=== PATIENT | male | born 1980 | race Caucasian/White ===

== ENCOUNTER 2016-10-20 07:43 | Inpatient (IN) | payer MEDICAID, OTHER ==
[~2016-10-20] VITALS: Ht 175.3 cm; Wt 97.5 kg
[~2016-10-20 07:43] MED LIST: [UNRECOGNIZED DRUG - CODE] PO; prednisone
[2016-10-20] MEDS ORDERED: DILTIAZEM HCL 5MG/ML 5ML VIAL IV ONE ×3 (08:00→08:15)
[2016-10-20] MEDS ORDERED: MORPHINE SULFATE 4 MG/ML CPJ (NOT FOR IM USE) IV STA (08:01)
[2016-10-20] MEDS ORDERED: ASPIRIN 81MG TABLET PO STA (08:01)
[2016-10-20] MEDS ORDERED: NITROGLYCERIN OINT 1GM/INCH UDPKT TD STA (08:01)
[2016-10-20] MEDS ORDERED: ONDANSETRON HCL 4MG/2ML VIAL IV STA (08:01)
[2016-10-20] MEDS ORDERED: ENOXAPARIN 100MG/ML SYR SUBCUT ONE (08:15)
[2016-10-20 08:31] LABS: BASOPHILS % 0.6 % (0.0-2.0); EOSINOPHILS % 1.7 % (0.0-5.0); HEMATOCRIT. 46.1 % (42.0-52.0); HEMOGLOBIN. 15.4 g/dL (14.0-18.0); LYMPHOCYTES % 25.2 % (20.0-50.0); MEAN CORPUSCULAR HEMOGLOBIN 28.3 pg (28.0-32.0); MEAN CORPUSCULAR VOLUME 84.5 fL (80.0-94.0); MEAN PLATELET VOLUME 8.6 fl (7.4-10.4); MONOCYTES % 4.3 % (2.0-8.0); NEUTROPHILS % 68.2 % (40.0-76.0); PLATELET 296 x1000/uL (130-400); RED BLOOD CELL COUNT 5.45 mill/uL (4.7-6.1); RED CELL DISTRIBUTION WIDTH 14.1 % (11.6-14.6)
[2016-10-20 08:35] LABS: PARTIAL THROMBOPLASTIN TIME 28.9 sec (23.4-31.0); PROTHROMBIN TIME 10.7 sec (9.4-11.6)
[2016-10-20 08:42] LABS: CARBON DIOXIDE 27 mEq/L (21-32); CHLORIDE 106 mEq/L (98-107); ETHANOL BLOOD < 10 mg/dL; TROPONIN I < 0.02 ng/mL (0.00-0.04)
[2016-10-20] MEDS ORDERED: DILTIAZEM HCL 120MG CAPSULE CD 24HR PO ONE (08:45)
[2016-10-20 08:48] LABS: T4 FREE 1.18 ng/dL (0.76-1.46)
[2016-10-20 09:55] LABS: *AMPHETAMINES SCREEN URINE PRESUMTIVE POSITIVE (NEGATIVE); *BARBITURATES SCREEN URINE NEGATIVE (NEGATIVE); *BENZODIAZEPINES SCREEN URINE NEGATIVE (NEGATIVE); *COCAINE SCREEN URINE NEGATIVE (NEGATIVE); CANNABINOID URINE SCREEN NEGATIVE (NEGATIVE); METHADONE URINE SCREEN NEGATIVE (NEGATIVE); OPIATES URINE SCREEN NEGATIVE (NEGATIVE); PHENCYCLIDINE URINE SCREEN NEGATIVE (NEGATIVE)
[2016-10-20 11:52] VITALS: BP 119/80
[2016-10-20 12:00] VITALS: BP 119/80
[2016-10-20] MEDS: DILTIAZEM HCL 30MG TABLET PO SCH ×3 (15:17→21:11)
[2016-10-20 16:00] VITALS: BP 111/70
[2016-10-20] MEDS ORDERED: POTASSIUM CHLORIDE 20MEQ TABLET SR PO NR (18:00)
[2016-10-20 20:00] VITALS: BP 124/83
[2016-10-20] MEDS: CARVEDILOL 3.125 MG TABLET PO SCH (20:28)
[2016-10-21] VITALS: BP_SYST 116; BP_SYST 187; BP_DIAS 68; BP_DIAS 90
[2016-10-21 04:00] VITALS: BP 139/79
[2016-10-21] MEDS: DILTIAZEM HCL 30MG TABLET PO SCH ×3 (05:41→21:15)
[2016-10-21 08:00] VITALS: BP 119/84
[2016-10-21] MEDS: CARVEDILOL 3.125 MG TABLET PO SCH ×2 (09:39→21:15)
[2016-10-21 12:00] VITALS: BP 121/89
[2016-10-21 16:00] VITALS: BP 118/85
[2016-10-21 20:00] VITALS: BP 116/79
[2016-10-21] MEDS ORDERED: DILT240C92 PO (20:05)
[2016-10-22] VITALS: BP 122/80
[2016-10-22 04:00] VITALS: BP 126/88
[2016-10-22] MEDS: DILTIAZEM HCL 30MG TABLET PO SCH ×2 (05:29→14:55)
[2016-10-22 08:00] VITALS: BP 125/65
[2016-10-22] MEDS: CARVEDILOL 3.125 MG TABLET PO SCH (09:22)
[2016-10-22] MEDS ORDERED: IOHEXOL-350 100 ML BOTTLE ONE (11:48)
[2016-10-22] MEDS ORDERED: SODIUM CHLORIDE 0.9% 10ML VIAL ONE (11:48)
[2016-10-22 12:00] VITALS: BP 136/88
[2016-10-22 15:46] VITALS: BP 125/88
[2016-10-22 16:00] VITALS: BP 121/82
== END 2016-10-22 16:35 | disposition home or self-care (01) | DRG 201 ==
LOC: ER 08:21 → 7WST 08:31 → ENRESERV 09:04
PROVIDERS: ADMIT Family Medicine; ATTEND Family Medicine
DX: I48.91 Unspecified atrial fibrillation (principal); I27.2 Other secondary pulmonary hypertension; I50.9 Heart failure, unspecified; I47.1 Supraventricular tachycardia; E87.6 Hypokalemia; F17.210 Nicotine dependence, cigarettes, uncomplicated; R73.9 Hyperglycemia, unspecified; Z59.0 Homelessness; F12.90 Cannabis use, unspecified, uncomplicated; Z79.899 Other long term (current) drug therapy; E87.5 Hyperkalemia; F19.10 Other psychoactive substance abuse, uncomplicated
CPT/HCPCS: 36415; 71010; 71275; 80053; 80305; 82962; 83690; 83735; 83880; 84439; 84443; 84481; 84484; 85025; 85610; 85730; 93005; 93306; 96372; 96374; 96375; 96376; 99285; A4216; G0482; J1650; J2270; J2405; J3490; Q9967

== ENCOUNTER 2016-11-01 10:02 | Emergency (ER) | payer MEDICAID, OTHER ==
[~2016-11-01] VITALS: Ht 175.3 cm; Wt 10.0 kg
[~2016-11-01 10:02] MED LIST changes: +DILT240C92 PO; -prednisone
[2016-11-01 10:43] LABS: BASOPHILS % 0.4 % (0.0-2.0); EOSINOPHILS % 1.8 % (0.0-5.0); HEMATOCRIT. 46.2 % (42.0-52.0); HEMOGLOBIN. 15.4 g/dL (14.0-18.0); LYMPHOCYTES % 22.1 % (20.0-50.0); MEAN CORPUSCULAR HEMOGLOBIN 28.4 pg (28.0-32.0); MEAN CORPUSCULAR VOLUME 85.2 fL (80.0-94.0); MEAN PLATELET VOLUME 8.6 fl (7.4-10.4); MONOCYTES % 4.8 % (2.0-8.0); NEUTROPHILS % 70.9 % (40.0-76.0); PLATELET 286 x1000/uL (130-400); RED BLOOD CELL COUNT 5.42 mill/uL (4.7-6.1); RED CELL DISTRIBUTION WIDTH 14.5 % (11.6-14.6)
[2016-11-01 10:53] LABS: CHLORIDE 105 mEq/L (98-107)
[2016-11-01 10:55] LABS: CARBON DIOXIDE 30 mEq/L (21-32)
[2016-11-01 11:01] LABS: TROPONIN I < 0.02 ng/mL (0.00-0.04)
[2016-11-01] MEDS ORDERED: MAGNESIUM/ALUMINUM HYDROXIDE/SIMETHICONE 30ML UDC PO STA (11:17)
[2016-11-01] MEDS ORDERED: FAMOTIDINE 20MG/2ML VIAL IV STA (11:17)
[2016-11-01] MEDS ORDERED: KETOROLAC 30MG/ML VIAL IV STA (11:17)
[2016-11-01] MEDS ORDERED: DICYCLOMINE 10 MG/5 ML ORAL SYR PO STA (11:17)
[2016-11-01] MEDS ORDERED: VISCOUS LIDOCAINE 2% 15 ML UDC PO STA (11:17)
[2016-11-01 15:00] VITALS: BP 152/96
== END 2016-11-01 16:05 | disposition home or self-care (01) ==
LOC: ER 10:36
DX: R07.9 Chest pain, unspecified (principal); F15.10 Other stimulant abuse, uncomplicated
CPT/HCPCS: 36415; 71010; 80053; 83880; 84484; 85025; 85610; 93005; 96374; 96375; 99285; J1885; J3490

== ENCOUNTER 2016-12-04 02:35 | Emergency (ER) | payer MEDICAID ==
[~2016-12-04] VITALS: Ht 175.3 cm; Wt 91.0 kg
[2016-12-04] MEDS ORDERED: ONDANSETRON HCL 4MG/2ML VIAL IV STA (03:08)
[2016-12-04] MEDS ORDERED: SODIUM CHLORIDE 0.9% 1,000 ML IV ONE (03:08)
[2016-12-04] MEDS ORDERED: ADENOSINE 3 MG/ML 2ML VIAL IV ONE (03:15)
[2016-12-04 03:30] LABS: BASOPHILS % 0.5 % (0.0-2.0); EOSINOPHILS % 1.7 % (0.0-5.0); HEMATOCRIT. 46.9 % (42.0-52.0); HEMOGLOBIN. 15.9 g/dL (14.0-18.0); LYMPHOCYTES % 30.5 % (20.0-50.0); MEAN CORPUSCULAR VOLUME 85.6 fL (80.0-94.0); MEAN PLATELET VOLUME 8.8 fl (7.4-10.4); MONOCYTES % 4.5 % (2.0-8.0); NEUTROPHILS % 62.8 % (40.0-76.0); PLATELET 290 x1000/uL (130-400); RED BLOOD CELL COUNT 5.48 mill/uL (4.7-6.1); RED CELL DISTRIBUTION WIDTH 14.1 % (11.6-14.6)
[2016-12-04 03:42] LABS: CARBON DIOXIDE 26 mEq/L (21-32); CHLORIDE 106 mEq/L (98-107); TROPONIN I < 0.02 ng/mL (0.00-0.04)
[2016-12-04 05:57] VITALS: BP 129/68
== END 2016-12-04 06:03 | disposition home or self-care (01) ==
LOC: ER 02:35
DX: I47.1 Supraventricular tachycardia (principal); F17.210 Nicotine dependence, cigarettes, uncomplicated; F15.10 Other stimulant abuse, uncomplicated
CPT/HCPCS: 36415; 71010; 80053; 84484; 85025; 93005; 96361; 96374; 96375; 99285; J0153; J2405; J7030

== ENCOUNTER 2016-12-11 23:24 | Inpatient (IN) | payer OTHER, MEDICAID ==
[~2016-12-11] VITALS: Ht 175.3 cm; Wt 94.1 kg
[2016-12-12] MEDS ORDERED: SODIUM CHLORIDE 0.9% 1,000 ML IV ONE (00:03)
[2016-12-12] MEDS ORDERED: ADENOSINE 3 MG/ML 2ML VIAL IV ONE ×2 (00:15)
[2016-12-12 00:22] LABS: HEMATOCRIT. 49.5 % (42.0-52.0); HEMOGLOBIN. 16.6 g/dL (14.0-18.0); MEAN CORPUSCULAR VOLUME 86.5 fL (80.0-94.0); RED BLOOD CELL COUNT 5.73 mill/uL (4.7-6.1); RED CELL DISTRIBUTION WIDTH 14.2 % (11.6-14.6)
[2016-12-12] MEDS ORDERED: DILTIAZEM HCL 5MG/ML 5ML VIAL IV ONE ×2 (00:26→00:30)
[2016-12-12 00:29] LABS: PARTIAL THROMBOPLASTIN TIME 28.5 sec (23.4-31.0)
[2016-12-12 00:38] LABS: CARBON DIOXIDE 29 mEq/L (21-32); CHLORIDE 105 mEq/L (98-107); TROPONIN I < 0.02 ng/mL (0.00-0.04)
[2016-12-12 00:47] LABS: CREATINE KINASE 78 IU/L (39-308)
[2016-12-12 02:00] LABS: PLATELET 314 x1000/uL (130-400)
[2016-12-12 02:03] LABS: ATYPICAL LYMPHOCYTES 4; PLATELET ESTIMATE NORMAL
[2016-12-12 04:01] LABS: *AMPHETAMINES SCREEN URINE PRESUMTIVE POSITIVE (NEGATIVE); *BARBITURATES SCREEN URINE NEGATIVE (NEGATIVE); *BENZODIAZEPINES SCREEN URINE NEGATIVE (NEGATIVE); *COCAINE SCREEN URINE NEGATIVE (NEGATIVE); CANNABINOID URINE SCREEN NEGATIVE (NEGATIVE); METHADONE URINE SCREEN NEGATIVE (NEGATIVE); OPIATES URINE SCREEN NEGATIVE (NEGATIVE); PHENCYCLIDINE URINE SCREEN NEGATIVE (NEGATIVE)
[2016-12-12 04:30] VITALS: BP 104/71
[2016-12-12 04:58] VITALS: BP 104/71
[2016-12-12] MEDS ORDERED: HYDROCODONE/ACETAMINOPHEN 10/325MG TABLET PO PRN (06:15)
[2016-12-12 07:27] VITALS: BP 137/91
[2016-12-12 09:39] LABS: BASOPHILS % 0.4 % (0.0-2.0); EOSINOPHILS % 1.4 % (0.0-5.0); HEMATOCRIT. 42.9 % (42.0-52.0); HEMOGLOBIN. 14.4 g/dL (14.0-18.0); LYMPHOCYTES % 28.2 % (20.0-50.0); MEAN CORPUSCULAR HEMOGLOBIN 28.5 pg (28.0-32.0); MEAN CORPUSCULAR VOLUME 84.9 fL (80.0-94.0); MEAN PLATELET VOLUME 8.7 fl (7.4-10.4); MONOCYTES % 5.5 % (2.0-8.0); NEUTROPHILS % 64.5 % (40.0-76.0); PLATELET 245 x1000/uL (130-400); RED BLOOD CELL COUNT 5.05 mill/uL (4.7-6.1); RED CELL DISTRIBUTION WIDTH 14.3 % (11.6-14.6)
[2016-12-12] MEDS ORDERED: DILTIAZEM HCL 5MG/ML 5ML VIAL IV NR (10:30)
[2016-12-12 10:45] LABS: CARBON DIOXIDE 25 mEq/L (21-32); CHLORIDE 108 mEq/L (98-107); HDL CHOLESTEROL 40 mg/dL (40-59); LDL CHOLESTEROL 34 mg/dL (5-100)
[2016-12-12] MEDS: DILTIAZEM HCL 30MG TABLET PO SCH ×3 (11:54→22:35)
[2016-12-12 12:00] VITALS: BP 127/91
[2016-12-12] MEDS ORDERED: PNEUMOCOCCAL 23-VAL P-SAC VAC 0.5 ML IM ONE (12:00)
[2016-12-12] MEDS ORDERED: INFLUENZA VIRUS VACCINE 0.5ML SYR IM ONE (12:00)
[2016-12-12] MEDS ORDERED: DILTIAZEM HCL 5MG/ML 5ML VIAL IV PRN (12:45)
[2016-12-12 15:44] VITALS: BP 106/71
[2016-12-12 19:43] VITALS: BP 141/97
[2016-12-13 00:15] VITALS: BP 146/93
[2016-12-13 05:00] VITALS: BP 138/86
[2016-12-13] MEDS: DILTIAZEM HCL 30MG TABLET PO SCH ×2 (05:15→13:07)
[2016-12-13 07:25] VITALS: BP 126/89
[2016-12-13] MEDS ORDERED: DILT120C11 MT (14:35)
[2016-12-13 16:15] VITALS: BP 126/85
== END 2016-12-13 17:10 | disposition home or self-care (01) | DRG 201 ==
LOC: ER 23:24 → 6WST 12-12 02:00 → EDBEDREQ 12-12 02:02 → ENRESERV 12-12 03:47
PROVIDERS: ADMIT Internal Medicine; ATTEND Internal Medicine
DX: I47.1 Supraventricular tachycardia (principal); E44.1 Mild protein-calorie malnutrition; E83.51 Hypocalcemia; M41.9 Scoliosis, unspecified; F15.10 Other stimulant abuse, uncomplicated; Z91.19 Patient's noncompliance with other medical treatment and regimen; Z68.30 Body mass index [BMI] 30.0-30.9, adult
CPT/HCPCS: 36415; 71010; 80053; 80061; 80305; 82550; 83036; 83690; 84443; 84484; 85025; 85610; 85730; 90686; 90732; 92960; 93005; 93306; 96374; 96375; 99291; J0153; J3490; J7030

== ENCOUNTER 2017-02-18 02:54 | Emergency (ER) | payer MEDICAID ==
[~2017-02-18] VITALS: Ht 172.7 cm; Wt 91.0 kg
[~2017-02-18 02:54] MED LIST changes: +DILT120C11 MT; -DILT240C92 PO; -[UNRECOGNIZED DRUG - CODE] PO
[2017-02-18 03:02] VITALS: BP 124/92
== END 2017-02-18 07:48 | disposition left against medical advice (07) ==
LOC: ER 02:54
DX: R07.9 Chest pain, unspecified (principal); Z53.21 Procedure and treatment not carried out due to patient leaving prior to being seen by health care provider
CPT/HCPCS: 93005

== ENCOUNTER 2017-10-05 22:24 | Emergency (ER) | payer MEDICAID ==
[~2017-10-05] VITALS: Ht 175.3 cm; Wt 90.0 kg
[2017-10-05] MEDS ORDERED: ASPIRIN 81MG TABLET PO ONE (23:00)
[2017-10-05 23:25] LABS: BASOPHILS % 0.6 % (0.0-2.0); EOSINOPHILS % 1.2 % (0.0-5.0); HEMATOCRIT. 45.6 % (42.0-52.0); HEMOGLOBIN. 15.2 g/dL (14.0-18.0); LYMPHOCYTES % 23.5 % (20.0-50.0); MEAN CORPUSCULAR HEMOGLOBIN 28.6 pg (28.0-32.0); MEAN CORPUSCULAR VOLUME 85.9 fL (80.0-94.0); MEAN PLATELET VOLUME 8.5 fl (7.4-10.4); NEUTROPHILS % 68.7 % (40.0-76.0); PLATELET 282 x1000/uL (130-400); RED BLOOD CELL COUNT 5.31 mill/uL (4.7-6.1); RED CELL DISTRIBUTION WIDTH 14.7 % (11.6-14.6)
[2017-10-05 23:28] LABS: CHLORIDE 106 mEq/L (98-107)
[2017-10-05 23:32] LABS: ETHANOL BLOOD < 10 mg/dL; PARTIAL THROMBOPLASTIN TIME 29.2 sec (23.4-31.0); PROTHROMBIN TIME 10.3 sec (9.1-11.1)
[2017-10-06 05:56] VITALS: BP 130/88
== END 2017-10-06 08:46 | disposition home or self-care (01) ==
LOC: ER 22:24 → CANBEDREQ 10-06 07:22 → ER 10-06 08:23
DX: F15.188 Other stimulant abuse with other stimulant-induced disorder (principal); R07.89 Other chest pain; I48.91 Unspecified atrial fibrillation; I51.9 Heart disease, unspecified
CPT/HCPCS: 36415; 71045; 80053; 83690; 83880; 84484; 85025; 85610; 85730; 93005; 99285; G0482; Z7610

== ENCOUNTER 2018-02-19 22:21 | Emergency (ER) | payer MEDICAID ==
[~2018-02-19] VITALS: Ht 175.3 cm; Wt 93.0 kg
[2018-02-20] MEDS ORDERED: LORAZEPAM 2MG/ML CPJ IV ONE (03:00)
[2018-02-20 03:29] LABS: BASOPHILS % 0.5 % (0.0-2.0); EOSINOPHILS % 1.8 % (0.0-5.0); HEMATOCRIT. 46.3 % (42.0-52.0); MEAN CORPUSCULAR HEMOGLOBIN 27.8 pg (28.0-32.0); MEAN CORPUSCULAR VOLUME 85.6 fL (80.0-94.0); MEAN PLATELET VOLUME 8.8 fl (7.4-10.4); MONOCYTES % 5.8 % (2.0-8.0); NEUTROPHILS % 63.9 % (40.0-76.0); PLATELET 292 x1000/uL (130-400); RED BLOOD CELL COUNT 5.41 mill/uL (4.7-6.1); RED CELL DISTRIBUTION WIDTH 14.2 % (11.6-14.6)
[2018-02-20] MEDS ORDERED: CEFTRIAXONE 1 G PREMIX 50 ML IV ONE (03:30)
[2018-02-20] MEDS ORDERED: AZITHROMYCIN 500 MG in DEXT 5% WATER 250 ML IV ONE (03:30)
[2018-02-20 03:31] LABS: CLARITY URINE CLEAR (CLEAR); COLOR URINE DARK YELLOW (YELLOW); KETONES URINE NEGATIVE (NEGATIVE); LEUKOCYTE ESTERASE URINE 1+ (NEGATIVE); NITRITE URINE NEGATIVE (NEGATIVE); OCCULT BLOOD URINE NEGATIVE (NEGATIVE); PH URINE 6.5 (4.5-8.0); PROTEIN URINE NEGATIVE (NEGATIVE); SPECIFIC GRAVITY URINE 1.029 (1.005-1.030)
[2018-02-20 03:37] LABS: CHLORIDE 107 mEq/L (98-107)
[2018-02-20 05:59] VITALS: BP 121/81
== END 2018-02-20 06:01 | disposition home or self-care (01) ==
LOC: ER 22:21
DX: J18.1 Lobar pneumonia, unspecified organism (principal); R07.89 Other chest pain; N39.0 Urinary tract infection, site not specified; F15.10 Other stimulant abuse, uncomplicated; R91.8 Other nonspecific abnormal finding of lung field; I51.9 Heart disease, unspecified; M41.9 Scoliosis, unspecified; Z87.891 Personal history of nicotine dependence; Z79.899 Other long term (current) drug therapy
CPT/HCPCS: 36415; 71045; 80053; 81003; 83880; 84484; 85025; 87040; 87086; 93005; 96365; 96367; 96375; 99284; J0456; J0696; J2060; J7060

== ENCOUNTER 2018-03-21 03:35 | Inpatient (IN) | payer MEDICAID ==
[~2018-03-21] VITALS: Ht 175.3 cm; Wt 91.6 kg
[2018-03-21] MEDS ORDERED: DOCUSATE SODIUM 100MG CAPSULE PO PRN (07:30)
[2018-03-21] MEDS ORDERED: ONDANSETRON HCL 4MG/2ML INJ IV PRN (07:30)
[2018-03-21] MEDS ORDERED: CLONIDINE 0.1MG TABLET PO PRN (07:30)
[2018-03-21] MEDS ORDERED: MAGNESIUM/ALUMINUM HYDROXIDE/SIMETHICONE 30ML UDC PO PRN (07:30)
[2018-03-21] MEDS ORDERED: DILTIAZEM HCL 30MG TABLET PO PRN (07:30)
[2018-03-21 07:55] LABS: BASOPHILS % 0.4 % (0.0-2.0); EOSINOPHILS % 1.1 % (0.0-5.0); HEMATOCRIT. 45.3 % (42.0-52.0); MEAN CORPUSCULAR HEMOGLOBIN 28.4 pg (28.0-32.0); MONOCYTES % 6.4 % (2.0-8.0); NEUTROPHILS % 57.1 % (40.0-76.0); PLATELET 288 x1000/uL (130-400); RED BLOOD CELL COUNT 5.26 mill/uL (4.7-6.1); RED CELL DISTRIBUTION WIDTH 14.5 % (11.6-14.6)
[2018-03-21 08:20] LABS: CHLORIDE 106 mEq/L (98-107)
[2018-03-21 09:00] VITALS: BP 141/91
[2018-03-21] MEDS ORDERED: ACETAMINOPHEN 325MG TABLET PO PRN (09:27)
[2018-03-21] MEDS: METOPROLOL TARTRATE 25MG TABLET PO SCH ×2 (09:35→20:55)
[2018-03-21] MEDS: ASPIRIN 81MG EC TABLET PO SCH (09:35)
[2018-03-21] MEDS: ENOXAPARIN 40MG/0.4ML SYR SUBCUT SCH (09:36)
[2018-03-21 12:00] VITALS: BP 111/64
[2018-03-21 16:00] VITALS: BP 103/69
[2018-03-21 16:32] LABS: *AMPHETAMINES SCREEN URINE PRESUMTIVE POSITIVE (NEGATIVE); *BARBITURATES SCREEN URINE NEGATIVE (NEGATIVE); *BENZODIAZEPINES SCREEN URINE NEGATIVE (NEGATIVE); *COCAINE SCREEN URINE NEGATIVE (NEGATIVE); METHADONE URINE SCREEN NEGATIVE (NEGATIVE); OPIATES URINE SCREEN NEGATIVE (NEGATIVE)
[2018-03-21 16:33] LABS: CANNABINOID URINE SCREEN NEGATIVE (NEGATIVE); PHENCYCLIDINE URINE SCREEN NEGATIVE (NEGATIVE)
[2018-03-21 20:00] VITALS: BP 124/88
[2018-03-22] VITALS: BP 106/66
[2018-03-22 04:00] VITALS: BP 96/61
[2018-03-22 04:15] VITALS: BP 96/61
[2018-03-22 06:33] LABS: BASOPHILS % 0.3 % (0.0-2.0); EOSINOPHILS % 1.6 % (0.0-5.0); HEMATOCRIT. 43.2 % (42.0-52.0); HEMOGLOBIN. 14.5 g/dL (14.0-18.0); LYMPHOCYTES % 32.8 % (20.0-50.0); MEAN CORPUSCULAR HEMOGLOBIN 28.5 pg (28.0-32.0); MEAN CORPUSCULAR VOLUME 85.2 fL (80.0-94.0); MONOCYTES % 5.8 % (2.0-8.0); NEUTROPHILS % 59.5 % (40.0-76.0); PLATELET 252 x1000/uL (130-400); RED BLOOD CELL COUNT 5.08 mill/uL (4.7-6.1); RED CELL DISTRIBUTION WIDTH 14.1 % (11.6-14.6)
[2018-03-22 07:07] LABS: CHLORIDE 106 mEq/L (98-107)
[2018-03-22 08:00] VITALS: BP 128/78
[2018-03-22] MEDS: METOPROLOL TARTRATE 25MG TABLET PO SCH (09:16)
[2018-03-22] MEDS: ASPIRIN 81MG EC TABLET PO SCH (09:16)
[2018-03-22] MEDS: ENOXAPARIN 40MG/0.4ML SYR SUBCUT SCH (09:17)
[2018-03-22 11:54] VITALS: BP 128/78
[2018-03-22 12:00] VITALS: BP 111/65
== END 2018-03-22 13:00 | disposition home or self-care (01) | DRG 201 ==
LOC: ER2 03:35 → 6WST 07:22 → ENRESERV 07:23
PROVIDERS: ADMIT Hospitalist; ATTEND Hospitalist
DX: I47.1 Supraventricular tachycardia (principal); E44.1 Mild protein-calorie malnutrition; E83.51 Hypocalcemia; F15.10 Other stimulant abuse, uncomplicated; F17.200 Nicotine dependence, unspecified, uncomplicated
CPT/HCPCS: 36415; 71045; 80048; 80305; 84484; 93005; 99285; J1650

== ENCOUNTER 2018-07-23 23:25 | Inpatient (IN) | payer MEDICAID ==
[~2018-07-23] VITALS: Ht 175.3 cm; Wt 88.5 kg
[2018-07-23] MEDS ORDERED: ONDANSETRON HCL 4MG/2ML INJ IV STA (23:47)
[2018-07-24] MEDS ORDERED: ASPIRIN 81MG TABLET PO ONE
[2018-07-24] MEDS ORDERED: ADENOSINE 3 MG/ML 2ML VIAL IV ONE
[2018-07-24 00:30] LABS: CHLORIDE 108 mEq/L (98-107)
[2018-07-24 00:33] LABS: PROTHROMBIN TIME 10.3 sec (9.6-11.0)
[2018-07-24 00:35] LABS: BASOPHILS % 0.4 % (0.0-2.0); EOSINOPHILS % 1.3 % (0.0-5.0); ETHANOL BLOOD < 10 mg/dL; HEMATOCRIT. 49.4 % (42.0-52.0); HEMOGLOBIN. 16.6 g/dL (14.0-18.0); MEAN CORPUSCULAR HEMOGLOBIN 28.9 pg (28.0-32.0); MEAN PLATELET VOLUME 9.2 fl (7.4-10.4); MONOCYTES % 5.5 % (2.0-8.0); NEUTROPHILS % 60.8 % (40.0-76.0); PLATELET 306 x1000/uL (130-400); RED BLOOD CELL COUNT 5.74 mill/uL (4.7-6.1); RED CELL DISTRIBUTION WIDTH 14.4 % (11.6-14.6)
[2018-07-24 04:52] LABS: *AMPHETAMINES SCREEN URINE PRESUMTIVE POSITIVE (NEGATIVE); *BARBITURATES SCREEN URINE NEGATIVE (NEGATIVE); *BENZODIAZEPINES SCREEN URINE NEGATIVE (NEGATIVE); CANNABINOID URINE SCREEN NEGATIVE (NEGATIVE); METHADONE URINE SCREEN NEGATIVE (NEGATIVE); OPIATES URINE SCREEN NEGATIVE (NEGATIVE); PHENCYCLIDINE URINE SCREEN NEGATIVE (NEGATIVE)
[2018-07-24 04:53] LABS: *COCAINE SCREEN URINE NEGATIVE (NEGATIVE)
[2018-07-24 14:00] VITALS: BP 120/90
[2018-07-24] MEDS ORDERED: ONDANSETRON HCL 4MG/2ML INJ IV PRN (14:15)
[2018-07-24] MEDS ORDERED: ACETAMINOPHEN 325MG TABLET PO PRN (14:15)
[2018-07-24 15:49] VITALS: BP 120/90
[2018-07-24 16:00] VITALS: BP 118/86
[2018-07-24] MEDS: METFORMIN HCL 500MG TABLET PO SCH (18:32)
[2018-07-24] MEDS: DILTIAZEM HCL 30MG TABLET PO SCH (18:33)
[2018-07-24 20:00] VITALS: BP 128/80
[2018-07-25] VITALS: BP 125/82
[2018-07-25] MEDS: DILTIAZEM HCL 30MG TABLET PO SCH ×3 (00:07→12:00)
[2018-07-25 04:00] VITALS: BP 112/78
[2018-07-25 05:30] LABS: BASOPHILS % 0.6 % (0.0-2.0); CHLORIDE 107 mEq/L (98-107); HEMATOCRIT. 47.6 % (42.0-52.0); HEMOGLOBIN. 16.2 g/dL (14.0-18.0); LYMPHOCYTES % 24.1 % (20.0-50.0); MEAN CORPUSCULAR VOLUME 85.6 fL (80.0-94.0); MEAN PLATELET VOLUME 8.9 fl (7.4-10.4); MONOCYTES % 5.2 % (2.0-8.0); NEUTROPHILS % 67.1 % (40.0-76.0); PLATELET 247 x1000/uL (130-400); RED BLOOD CELL COUNT 5.56 mill/uL (4.7-6.1); RED CELL DISTRIBUTION WIDTH 13.9 % (11.6-14.6)
[2018-07-25 08:00] VITALS: BP 108/74
[2018-07-25] MEDS ORDERED: ASPIRIN 81MG TABLET PO SCH (09:00)
[2018-07-25] MEDS: METFORMIN HCL 500MG TABLET PO SCH (09:43)
[2018-07-25 12:00] VITALS: BP 108/50
[2018-07-25 14:59] VITALS: BP 108/50
== END 2018-07-25 15:15 | disposition home or self-care (01) | DRG 201 ==
LOC: ER 23:25 → 7WST 07-24 02:57 → EDBEDREQ 07-24 03:05 → EDBEDREQTM 07-24 03:05 → EDBEDREQDT 07-24 03:05 → ENRESERV 07-24 11:04
PROVIDERS: ADMIT Internal Medicine; ATTEND Internal Medicine
DX: I47.1 Supraventricular tachycardia (principal); E87.8 Other disorders of electrolyte and fluid balance, not elsewhere classified; I48.91 Unspecified atrial fibrillation; E11.9 Type 2 diabetes mellitus without complications; F10.10 Alcohol abuse, uncomplicated; F15.10 Other stimulant abuse, uncomplicated; I10 Essential (primary) hypertension; R07.89 Other chest pain
CPT/HCPCS: 36415; 71045; 80048; 80305; 80320; 83880; 84484; 93005; 93306; 96374; 99285; J0153; J2405; G0480

== ENCOUNTER 2019-02-08 15:56 | Emergency (ER) | payer MEDICAID ==
[~2019-02-08] VITALS: Ht 165.1 cm; Wt 78.0 kg
[2019-02-08] MEDS ORDERED: SODIUM CHLORIDE 0.9% 1,000 ML IV ONE (16:54)
[2019-02-08 17:35] LABS: BASOPHILS % 0.4 % (0.0-2.0); EOSINOPHILS % 0.3 % (0.0-5.0); HEMATOCRIT. 46.5 % (42.0-52.0); HEMOGLOBIN. 15.6 g/dL (14.0-18.0); LYMPHOCYTES % 18.1 % (20.0-50.0); MEAN CORPUSCULAR HEMOGLOBIN 28.3 pg (28.0-32.0); MEAN CORPUSCULAR VOLUME 84.6 fL (80.0-94.0); MEAN PLATELET VOLUME 9.2 fl (7.4-10.4); NEUTROPHILS % 76.2 % (40.0-76.0); PLATELET 259 x1000/uL (130-400); RED BLOOD CELL COUNT 5.49 mill/uL (4.7-6.1); RED CELL DISTRIBUTION WIDTH 14.2 % (11.6-14.6)
[2019-02-08 17:36] LABS: CHLORIDE 107 mEq/L (98-107)
[2019-02-08 17:40] LABS: ETHANOL BLOOD < 10 mg/dL
[2019-02-08 21:07] VITALS: BP 125/98
== END 2019-02-08 21:32 | disposition home or self-care (01) ==
LOC: ER 16:05
DX: I47.1 Supraventricular tachycardia (principal)
CPT/HCPCS: 36415; 71045; 80053; 80320; 84484; 85025; 93005; 99284; J7030; Z7610; G0480

== ENCOUNTER 2019-02-12 19:07 | Inpatient (IN) | payer MEDICAID ==
[~2019-02-12] VITALS: Ht 175.3 cm; Wt 94.5 kg
[2019-02-12] MEDS ORDERED: SODIUM CHLORIDE 0.9% 1,000 ML IV ONE (19:45)
[2019-02-12] MEDS ORDERED: ADENOSINE 3 MG/ML 2ML VIAL IV ONE ×3 (19:45→19:49)
[2019-02-12 20:30] LABS: BASOPHILS % 0.5 % (0.0-2.0); EOSINOPHILS % 1.1 % (0.0-5.0); HEMATOCRIT. 44.6 % (42.0-52.0); LYMPHOCYTES % 27.2 % (20.0-50.0); MEAN CORPUSCULAR HEMOGLOBIN 28.4 pg (28.0-32.0); MEAN CORPUSCULAR VOLUME 84.1 fL (80.0-94.0); MEAN PLATELET VOLUME 8.9 fl (7.4-10.4); MONOCYTES % 4.9 % (2.0-8.0); NEUTROPHILS % 66.3 % (40.0-76.0); PLATELET 271 x1000/uL (130-400); RED CELL DISTRIBUTION WIDTH 14.1 % (11.6-14.6)
[2019-02-12 21:09] LABS: CHLORIDE 109 mEq/L (98-107)
[2019-02-12 22:24] LABS: *AMPHETAMINES SCREEN URINE PRESUMTIVE POSITIVE (NEGATIVE); *BARBITURATES SCREEN URINE NEGATIVE (NEGATIVE); CANNABINOID URINE SCREEN NEGATIVE (NEGATIVE); OPIATES URINE SCREEN NEGATIVE (NEGATIVE); PHENCYCLIDINE URINE SCREEN NEGATIVE (NEGATIVE)
[2019-02-12 22:26] LABS: *BENZODIAZEPINES SCREEN URINE NEGATIVE (NEGATIVE); *COCAINE SCREEN URINE NEGATIVE (NEGATIVE); METHADONE URINE SCREEN NEGATIVE (NEGATIVE)
[2019-02-13] MEDS ORDERED: ACETAMINOPHEN 325MG TABLET PO PRN (10:30)
[2019-02-13] MEDS ORDERED: ONDANSETRON HCL 4MG/2ML INJ IV PRN (10:30)
[2019-02-13] MEDS ORDERED: CLONIDINE 0.1MG TABLET PO PRN (10:30)
[2019-02-13] MEDS ORDERED: DILTIAZEM HCL 5MG/ML 5ML VIAL IV PRN (11:45)
[2019-02-13 12:47] LABS: BASOPHILS % 0.6 % (0.0-2.0); EOSINOPHILS % 2.1 % (0.0-5.0); HEMATOCRIT. 45.3 % (42.0-52.0); HEMOGLOBIN. 15.2 g/dL (14.0-18.0); LYMPHOCYTES % 33.2 % (20.0-50.0); MEAN CORPUSCULAR HEMOGLOBIN 28.6 pg (28.0-32.0); MEAN CORPUSCULAR VOLUME 85.4 fL (80.0-94.0); MEAN PLATELET VOLUME 8.8 fl (7.4-10.4); MONOCYTES % 4.6 % (2.0-8.0); NEUTROPHILS % 59.5 % (40.0-76.0); PLATELET 260 x1000/uL (130-400); RED CELL DISTRIBUTION WIDTH 14.3 % (11.6-14.6)
[2019-02-13 12:57] LABS: CHLORIDE 105 mEq/L (98-107)
[2019-02-13] MEDS: DILTIAZEM HCL 60MG TABLET PO SCH (20:41)
[2019-02-13 20:50] LABS: CLARITY URINE CLEAR (CLEAR); COLOR URINE YELLOW (YELLOW); KETONES URINE NEGATIVE (NEGATIVE); LEUKOCYTE ESTERASE URINE 1+ (NEGATIVE); NITRITE URINE NEGATIVE (NEGATIVE); OCCULT BLOOD URINE NEGATIVE (NEGATIVE); PH URINE 7.5 (4.5-8.0); PROTEIN URINE NEGATIVE (NEGATIVE)
[2019-02-13 21:50] VITALS: BP 128/84
[2019-02-14 00:26] VITALS: BP 124/81
[2019-02-14] MEDS: DILTIAZEM HCL 60MG TABLET PO SCH ×4 (01:07→12:03)
[2019-02-14 04:00] VITALS: BP 129/84
[2019-02-14] MEDS ORDERED: METFORMIN HCL 500MG TABLET PO SCH (07:50)
[2019-02-14 08:00] VITALS: BP 111/87
[2019-02-14] MEDS ORDERED: INFLUENZA VIRUS VACCINE(AFLURIA) 0.5ML SYR IM ONE (09:00)
[2019-02-14] MEDS ORDERED: ASPIRIN 81MG TABLET PO SCH (09:00)
[2019-02-14] MEDS ORDERED: DILT240C91 MT (10:52)
[2019-02-14] MEDS ORDERED: METF-414 MT (10:52)
[2019-02-14 12:00] VITALS: BP 113/78
[2019-02-14 14:41] VITALS: BP 135/87
[2019-02-14 16:00] VITALS: BP 117/74
== END 2019-02-14 17:00 | disposition home or self-care (01) | DRG 201 ==
LOC: ER 19:07 → 6WST 22:44 → EDBEDREQ 23:04 → EDBEDREQTM 23:04 → ENRESERV 02-13 20:44
PROVIDERS: ADMIT Internal Medicine; ATTEND Internal Medicine
DX: I47.1 Supraventricular tachycardia (principal); E87.8 Other disorders of electrolyte and fluid balance, not elsewhere classified; F15.10 Other stimulant abuse, uncomplicated; E11.9 Type 2 diabetes mellitus without complications; M41.9 Scoliosis, unspecified; E66.9 Obesity, unspecified; F17.210 Nicotine dependence, cigarettes, uncomplicated; Z68.30 Body mass index [BMI] 30.0-30.9, adult; Z71.3 Dietary counseling and surveillance; Z71.51 Drug abuse counseling and surveillance of drug abuser
CPT/HCPCS: 36415; 71045; 80048; 80053; 80305; 81003; 82962; 83036; 83880; 84484; 85025; 90686; 93005; 93306; 96361; 99291; J0153; J7030

== ENCOUNTER 2019-10-23 23:45 | Inpatient (IN) | payer MEDICAID ==
[~2019-10-23] VITALS: Ht 175.3 cm; Wt 100.8 kg
[~2019-10-23 23:45] MED LIST changes: -DILT120C11 MT; +DILT240C91 MT; +METF-414 MT
[2019-10-24] VITALS (9 sets, daily range): BP systolic 129–153; BP diastolic 70–103
[2019-10-24] MEDS ORDERED: FUROSEMIDE 40MG/4ML VIAL IV ONE (00:30)
[2019-10-24] MEDS ORDERED: ASPIRIN 81MG TABLET PO ONE (00:30)
[2019-10-24 00:51] LABS: BASOPHILS % 0.9 % (0.0-2.0); EOSINOPHILS % 2.2 % (0.0-5.0); HEMATOCRIT. 42.7 % (42.0-52.0); HEMOGLOBIN. 14.5 g/dL (14.0-18.0); LYMPHOCYTES % 23.1 % (20.0-50.0); MEAN CORPUSCULAR VOLUME 88.1 fL (80.0-94.0); MEAN PLATELET VOLUME 9.5 fl (7.4-10.4); MONOCYTES % 6.4 % (2.0-8.0); NEUTROPHILS % 67.4 % (40.0-76.0); PLATELET 221 x1000/uL (130-400); RED BLOOD CELL COUNT 4.85 mill/uL (4.7-6.1); RED CELL DISTRIBUTION WIDTH 14.5 % (11.6-14.6)
[2019-10-24 00:52] LABS: CHLORIDE 110 mEq/L (98-107)
[2019-10-24 01:46] LABS: CLARITY URINE CLEAR (CLEAR); COLOR URINE YELLOW (YELLOW); KETONES URINE NEGATIVE (NEGATIVE); LEUKOCYTE ESTERASE URINE NEGATIVE (NEGATIVE); NITRITE URINE NEGATIVE (NEGATIVE); OCCULT BLOOD URINE 1+ (NEGATIVE); PH URINE 6.5 (4.5-8.0); PROTEIN URINE NEGATIVE (NEGATIVE); SPECIFIC GRAVITY URINE 1.008 (1.005-1.030); UROBILINOGEN URINE 0.2 E.U./dL (0.2-1.0)
[2019-10-24 01:57] LABS: *AMPHETAMINES SCREEN URINE PRESUMTIVE POSITIVE (NEGATIVE); *BARBITURATES SCREEN URINE NEGATIVE (NEGATIVE); *BENZODIAZEPINES SCREEN URINE NEGATIVE (NEGATIVE); *COCAINE SCREEN URINE NEGATIVE (NEGATIVE); METHADONE URINE SCREEN NEGATIVE (NEGATIVE)
[2019-10-24 01:58] LABS: CANNABINOID URINE SCREEN NEGATIVE (NEGATIVE); OPIATES URINE SCREEN NEGATIVE (NEGATIVE); PHENCYCLIDINE URINE SCREEN NEGATIVE (NEGATIVE)
[2019-10-24] MEDS ORDERED: ENOXAPARIN 30MG/0.3ML SYR SUBCUT SCH (10:04)
[2019-10-24] MEDS ORDERED: FUROSEMIDE 40MG/4ML VIAL IVP SCH (10:06)
[2019-10-24] MEDS: THIAMINE HCL 100MG TABLET PO SCH (12:20)
[2019-10-24] MEDS: FOLIC ACID 1MG TABLET PO SCH (12:20)
[2019-10-24] MEDS: MULTIVITAMINS,THER W-MINERALS TABLET PO SCH (12:20)
[2019-10-24] MEDS ORDERED: PNEUMOCOCCAL 23-VAL P-SAC VAC 0.5 ML IM ONE (12:45)
[2019-10-24] MEDS: ENOXAPARIN 30MG/0.3ML SYR SUBCUT SCH (20:32)
[2019-10-25] VITALS (12 sets, daily range): BP systolic 120–149; BP diastolic 64–89
[2019-10-25] MEDS: MULTIVITAMINS,THER W-MINERALS TABLET PO SCH (09:30)
[2019-10-25] MEDS: THIAMINE HCL 100MG TABLET PO SCH (09:30)
[2019-10-25] MEDS: ENOXAPARIN 30MG/0.3ML SYR SUBCUT SCH ×2 (09:31→20:59)
[2019-10-25] MEDS: FUROSEMIDE 40MG/4ML VIAL IVP SCH (09:31)
[2019-10-25] MEDS: FOLIC ACID 1MG TABLET PO SCH (09:31)
[2019-10-25 12:22] LABS: BASOPHILS % 0.7 % (0.0-2.0); EOSINOPHILS % 1.6 % (0.0-5.0); HEMATOCRIT. 48.9 % (42.0-52.0); HEMOGLOBIN. 16.3 g/dL (14.0-18.0); LYMPHOCYTES % 21.7 % (20.0-50.0); MEAN CORPUSCULAR HEMOGLOBIN 29.2 pg (28.0-32.0); MEAN CORPUSCULAR VOLUME 87.6 fL (80.0-94.0); MEAN PLATELET VOLUME 9.4 fl (7.4-10.4); MONOCYTES % 5.8 % (2.0-8.0); NEUTROPHILS % 70.2 % (40.0-76.0); PLATELET 283 x1000/uL (130-400); RED BLOOD CELL COUNT 5.58 mill/uL (4.7-6.1); RED CELL DISTRIBUTION WIDTH 14.4 % (11.6-14.6)
[2019-10-25 12:25] LABS: PROTHROMBIN TIME 10.9 sec (9.6-11.0)
[2019-10-25 12:30] LABS: CHLORIDE 103 mEq/L (98-107)
[2019-10-25] MEDS ORDERED: FUROSEMIDE 40MG/4ML VIAL IVP SCH (18:00)
[2019-10-25] MEDS: ALBUTEROL (0.083%) 2.5MG/3ML NEB HHN SCH (20:55)
[2019-10-26] VITALS (12 sets, daily range): BP systolic 106–158; BP diastolic 62–96
[2019-10-26] MEDS: ALBUTEROL (0.083%) 2.5MG/3ML NEB HHN SCH ×4 (01:27→21:08)
[2019-10-26] MEDS: FUROSEMIDE 40MG/4ML VIAL IVP SCH (08:26)
[2019-10-26] MEDS: MULTIVITAMINS,THER W-MINERALS TABLET PO SCH (08:27)
[2019-10-26] MEDS: THIAMINE HCL 100MG TABLET PO SCH (08:27)
[2019-10-26] MEDS: ENOXAPARIN 30MG/0.3ML SYR SUBCUT SCH ×2 (08:27→21:19)
[2019-10-26] MEDS: FOLIC ACID 1MG TABLET PO SCH (08:27)
[2019-10-26] MEDS ORDERED: IOHEXOL-350 100 ML BOTTLE ONE (09:32)
[2019-10-26] MEDS: AMIODARONE HCL 900 MG in DEXT 5% WATER 482 ML IV SCH (10:48)
[2019-10-26] MEDS ORDERED: FURO-151 MT (18:52)
[2019-10-26 20:09] LABS: BASOPHILS % 0.6 % (0.0-2.0); EOSINOPHILS % 1.4 % (0.0-5.0); HEMATOCRIT. 49.6 % (42.0-52.0); HEMOGLOBIN. 16.6 g/dL (14.0-18.0); LYMPHOCYTES % 21.7 % (20.0-50.0); MEAN CORPUSCULAR HEMOGLOBIN 29.3 pg (28.0-32.0); MEAN CORPUSCULAR VOLUME 87.8 fL (80.0-94.0); MONOCYTES % 6.6 % (2.0-8.0); NEUTROPHILS % 69.7 % (40.0-76.0); PLATELET 307 x1000/uL (130-400); RED BLOOD CELL COUNT 5.65 mill/uL (4.7-6.1); RED CELL DISTRIBUTION WIDTH 14.8 % (11.6-14.6)
[2019-10-26 20:16] LABS: CHLORIDE 101 mEq/L (98-107)
[2019-10-27] VITALS (11 sets, daily range): BP systolic 121–140; BP diastolic 61–101
[2019-10-27] MEDS: ALBUTEROL (0.083%) 2.5MG/3ML NEB HHN SCH ×3 (01:20→14:31)
[2019-10-27] MEDS: AMIODARONE HCL 900 MG in DEXT 5% WATER 482 ML IV SCH (06:56)
[2019-10-27] MEDS: ENOXAPARIN 30MG/0.3ML SYR SUBCUT SCH ×2 (08:10→08:18)
[2019-10-27] MEDS: FOLIC ACID 1MG TABLET PO SCH (08:10)
[2019-10-27] MEDS: THIAMINE HCL 100MG TABLET PO SCH (08:10)
[2019-10-27] MEDS: FUROSEMIDE 40MG/4ML VIAL IVP SCH (08:10)
[2019-10-27] MEDS: MULTIVITAMINS,THER W-MINERALS TABLET PO SCH (08:10)
[2019-10-27] MEDS ORDERED: AMIODARONE HCL 200 MG TABLET PO SCH (11:00)
[2019-10-27] MEDS ORDERED: APIXABAN 5 MG TABLET PO SCH (11:00)
[2019-10-27] MEDS ORDERED: AMI2 PO (13:46)
[2019-10-27] MEDS ORDERED: APIX5TAB PO (13:46)
[2019-10-27] MEDS ORDERED: DIGOXIN 500MCG/2ML AMP IV SCH (14:30)
[2019-10-27] MEDS ORDERED: AMIODARONE HCL 900 MG in DEXT 5% WATER 482 ML IV ONE (15:30)
== END 2019-10-27 15:54 | disposition home or self-care (01) | DRG 133 ==
LOC: ER 23:45 → 3WST 10-24 02:13 → EDBEDREQTM 10-24 02:22 → EDBEDREQ 10-24 02:22 → ENRESERV 10-24 08:16 → 3WST 10-24 10:33
PROVIDERS: ADMIT Family Medicine; ATTEND Family Medicine
DX: J96.00 Acute respiratory failure, unspecified whether with hypoxia or hypercapnia (principal); I11.0 Hypertensive heart disease with heart failure; I50.33 Acute on chronic diastolic (congestive) heart failure; I48.91 Unspecified atrial fibrillation; I47.1 Supraventricular tachycardia; I27.20 Pulmonary hypertension, unspecified; E11.9 Type 2 diabetes mellitus without complications; F15.10 Other stimulant abuse, uncomplicated; F19.10 Other psychoactive substance abuse, uncomplicated; F17.210 Nicotine dependence, cigarettes, uncomplicated; Z91.19 Patient's noncompliance with other medical treatment and regimen; Z91.14 Patient's other noncompliance with medication regimen; Z79.84 Long term (current) use of oral hypoglycemic drugs; Z79.899 Other long term (current) drug therapy
CPT/HCPCS: 36415; 71045; 71275; 80053; 80061; 80305; 81003; 83036; 83735; 83880; 84484; 85025; 90732; 93005; 93306; 97162; 99285; J0282; J1160; J1650; J1940; J7060; Q9967

== ENCOUNTER 2020-01-12 18:42 | Inpatient (IN) | payer MEDICAID ==
[~2020-01-12] VITALS: Ht 175.3 cm; Wt 107.3 kg
[~2020-01-12 18:42] MED LIST changes: +AMI2 PO; +APIX5TAB PO; +FURO-151 MT
[2020-01-12] MEDS ORDERED: ASPIRIN 81MG TABLET PO ONE (19:30)
[2020-01-12] MEDS ORDERED: FUROSEMIDE 40MG/4ML VIAL IVP ONE (19:30)
[2020-01-12] MEDS ORDERED: AMIODARONE HCL 150 MG in DEXT 5% WATER 100 ML IV ONE (19:30)
[2020-01-12] MEDS ORDERED: AMIODARONE HCL 900 MG in DEXT 5% WATER 500 ML IV ONE (19:30)
[2020-01-12 20:25] LABS: BASOPHILS % 0.5 % (0.0-2.0); EOSINOPHILS % 0.7 % (0.0-5.0); HEMATOCRIT. 50.5 % (42.0-52.0); HEMOGLOBIN. 16.6 g/dL (14.0-18.0); LYMPHOCYTES % 17.2 % (20.0-50.0); MEAN CORPUSCULAR HEMOGLOBIN 28.4 pg (28.0-32.0); MEAN CORPUSCULAR VOLUME 86.4 fL (80.0-94.0); MEAN PLATELET VOLUME 9.9 fl (7.4-10.4); MONOCYTES % 6.1 % (2.0-8.0); NEUTROPHILS % 75.5 % (40.0-76.0); PLATELET 279 x1000/uL (130-400); RED BLOOD CELL COUNT 5.84 mill/uL (4.7-6.1); RED CELL DISTRIBUTION WIDTH 14.9 % (11.6-14.6)
[2020-01-12 20:33] LABS: CHLORIDE 105 mEq/L (98-107)
[2020-01-13] VITALS (7 sets, daily range): BP systolic 111–135; BP diastolic 34–99
[2020-01-13] MEDS ORDERED: DIPHENHYDRAMINE 50MG/ML VIAL IV PRN (03:00)
[2020-01-13] MEDS ORDERED: ONDANSETRON HCL 4MG/2ML INJ IV PRN (03:00)
[2020-01-13] MEDS ORDERED: ENOXAPARIN 30MG/0.3ML SYR SUBCUT SCH (09:00)
[2020-01-13] MEDS: ASPIRIN 81MG TABLET PO SCH (09:07)
[2020-01-13] MEDS: AMIODARONE HCL 200 MG TABLET PO SCH (09:08)
[2020-01-13] MEDS: FUROSEMIDE 40MG/4ML VIAL IVP SCH ×2 (09:08→22:04)
[2020-01-13] MEDS: LISINOPRIL 20MG TABLET PO SCH (09:11)
[2020-01-13] MEDS: CARVEDILOL 3.125 MG TABLET PO SCH ×2 (09:12→22:05)
[2020-01-13 09:34] LABS: BASOPHILS % 0.6 % (0.0-2.0); EOSINOPHILS % 0.6 % (0.0-5.0); HEMATOCRIT. 47.5 % (42.0-52.0); HEMOGLOBIN. 15.6 g/dL (14.0-18.0); LYMPHOCYTES % 18.4 % (20.0-50.0); MEAN CORPUSCULAR HEMOGLOBIN 28.5 pg (28.0-32.0); MEAN CORPUSCULAR VOLUME 86.7 fL (80.0-94.0); MEAN PLATELET VOLUME 9.6 fl (7.4-10.4); MONOCYTES % 5.2 % (2.0-8.0); NEUTROPHILS % 75.2 % (40.0-76.0); PLATELET 233 x1000/uL (130-400); RED BLOOD CELL COUNT 5.48 mill/uL (4.7-6.1); RED CELL DISTRIBUTION WIDTH 15.2 % (11.6-14.6)
[2020-01-13 09:39] LABS: CHLORIDE 106 mEq/L (98-107)
[2020-01-13 09:49] LABS: LDL CHOLESTEROL 28 mg/dL (5-100)
[2020-01-13 09:51] LABS: HDL CHOLESTEROL 39 mg/dL (40-59)
[2020-01-13 10:16] LABS: T4 FREE 1.53 ng/dL (0.76-1.46)
[2020-01-13] MEDS: APIXABAN 5 MG TABLET PO SCH ×2 (12:31→19:03)
[2020-01-13] MEDS ORDERED: AMI2 PO (12:40)
[2020-01-13] MEDS ORDERED: METF-414 MT (12:40)
[2020-01-13] MEDS ORDERED: APIX5TAB PO (12:40)
[2020-01-13] MEDS ORDERED: FUROSEMIDE 40MG/4ML VIAL IVP NR (14:00)
[2020-01-13 14:04] LABS: *AMPHETAMINES SCREEN URINE PRESUMTIVE POSITIVE (NEGATIVE); *BARBITURATES SCREEN URINE NEGATIVE (NEGATIVE); *BENZODIAZEPINES SCREEN URINE NEGATIVE (NEGATIVE); *COCAINE SCREEN URINE NEGATIVE (NEGATIVE); METHADONE URINE SCREEN NEGATIVE (NEGATIVE); OPIATES URINE SCREEN NEGATIVE (NEGATIVE)
[2020-01-13 14:05] LABS: CANNABINOID URINE SCREEN NEGATIVE (NEGATIVE); PHENCYCLIDINE URINE SCREEN NEGATIVE (NEGATIVE)
[2020-01-13 17:50] LABS: CREATINE KINASE MB FRACTION 2.9 ng/mL (0.5-3.6)
[2020-01-13 18:03] LABS: BG BASE EXCESS -1.8 mmol/L (-2.0-2.0); BG CARBOXYHEMOGLOBIN 0.8 % (0.5-1.5); BG DEOXYHEMOGLOBIN 11.6 % (0.0-5.0); BG FRACTION INSPIRED OXYGEN 21; BG HCO3 ACT 22.3 mmol/L (22.0-26.0); BG METHEMOGLOBIN 0.3 % (0.0-1.5); BG OXYGEN SATURATION 88.3 % (92.0-98.5); BG OXYHEMOGLOBIN 87.3 % (94.0-97.0); BG PCO2 36.3 mmHg (35.0-45.0); BG PH 7.407 (7.350-7.450); BG PO2 56.6 mmHg (75.0-100.0); BG SAMPLE SITE RIGHT BRACHIAL; BG TOTAL HEMOGLOBIN 15.8 g/dL (12.0-18.0); BG VENT MODE ROOM AIR
[2020-01-14] VITALS (7 sets, daily range): BP systolic 103–146; BP diastolic 57–89
[2020-01-14 00:14] LABS: CREATINE KINASE MB FRACTION 2.3 ng/mL (0.5-3.6)
[2020-01-14 06:13] LABS: INR 1.1; PROTHROMBIN TIME 11.9 sec (9.6-11.0)
[2020-01-14] MEDS: APIXABAN 5 MG TABLET PO SCH ×2 (09:00→18:34)
[2020-01-14] MEDS: FUROSEMIDE 40MG/4ML VIAL IVP SCH (09:22)
[2020-01-14] MEDS: AMIODARONE HCL 200 MG TABLET PO SCH (09:22)
[2020-01-14] MEDS: ASPIRIN 81MG TABLET PO SCH (09:22)
[2020-01-14] MEDS: LISINOPRIL 20MG TABLET PO SCH (09:23)
[2020-01-14] MEDS: CARVEDILOL 3.125 MG TABLET PO SCH (09:24)
[2020-01-14 12:24] LABS: HEMATOCRIT 45.9 % (42.0-52.0); HEMOGLOBIN 15.1 g/dL (14.0-18.0)
[2020-01-14] MEDS ORDERED: IPRATROPIUM BROMIDE (0.02%) 0.5MG/2.5ML NEB HHN PRN (18:15)
== END 2020-01-14 20:06 | disposition home or self-care (01) | DRG 194 ==
LOC: ER 18:42 → 5EST 22:34 → EDBEDREQTM 22:38 → EDBEDREQ 22:38 → ENRESERV 23:40 → 5EST 01-13 02:00
PROVIDERS: ADMIT Internal Medicine; ATTEND Internal Medicine
DX: I11.0 Hypertensive heart disease with heart failure (principal); J96.01 Acute respiratory failure with hypoxia; I48.91 Unspecified atrial fibrillation; E11.9 Type 2 diabetes mellitus without complications; E66.9 Obesity, unspecified; F15.90 Other stimulant use, unspecified, uncomplicated; M41.9 Scoliosis, unspecified; N17.9 Acute kidney failure, unspecified; I50.43 Acute on chronic combined systolic (congestive) and diastolic (congestive) heart failure; Z91.14 Patient's other noncompliance with medication regimen; Z79.01 Long term (current) use of anticoagulants; Z79.899 Other long term (current) drug therapy; Z79.84 Long term (current) use of oral hypoglycemic drugs; Z71.51 Drug abuse counseling and surveillance of drug abuser; Z68.34 Body mass index [BMI] 34.0-34.9, adult; Z59.0 Homelessness; R65.11 Systemic inflammatory response syndrome (SIRS) of non-infectious origin with acute organ dysfunction
CPT/HCPCS: 36415; 36600; 71045; 80048; 80053; 80061; 80305; 82375; 82550; 82553; 82805; 82962; 83036; 83880; 84134; 84439; 84443; 84484; 85014; 85018; 85025; 85379; 93005; 93306; 96365; 97166; 99291; J0282; J1650; J1940; J7060

== ENCOUNTER 2020-03-21 04:43 | Emergency (ER) | payer MEDICAID ==
[~2020-03-21] VITALS: Ht 175.3 cm; Wt 110.6 kg
[~2020-03-21 04:43] MED LIST changes: -DILT240C91 MT
[2020-03-21] MEDS ORDERED: ACETAMINOPHEN 325MG TABLET PO ONE (06:15)
[2020-03-21 06:31] LABS: CHLORIDE 109 mEq/L (98-107)
[2020-03-21 06:34] LABS: BASOPHILS % 0.6 % (0.0-2.0); EOSINOPHILS % 1.1 % (0.0-5.0); HEMATOCRIT. 45.4 % (42.0-52.0); HEMOGLOBIN. 14.9 g/dL (14.0-18.0); LYMPHOCYTES % 23.4 % (20.0-50.0); MEAN CORPUSCULAR HEMOGLOBIN 28.5 pg (28.0-32.0); MEAN CORPUSCULAR VOLUME 86.8 fL (80.0-94.0); MEAN PLATELET VOLUME 9.4 fl (7.4-10.4); MONOCYTES % 7.3 % (2.0-8.0); NEUTROPHILS % 67.6 % (40.0-76.0); PLATELET 202 x1000/uL (130-400); RED BLOOD CELL COUNT 5.23 mill/uL (4.7-6.1); RED CELL DISTRIBUTION WIDTH 15.8 % (11.6-14.6)
[2020-03-21 06:46] LABS: PARTIAL THROMBOPLASTIN TIME 28.8 sec (23.4-31.0); PROTHROMBIN TIME 10.9 sec (9.6-11.0)
[2020-03-21 07:52] LABS: CLARITY URINE CLEAR (CLEAR); COLOR URINE YELLOW (YELLOW); KETONES URINE NEGATIVE (NEGATIVE); LEUKOCYTE ESTERASE URINE NEGATIVE (NEGATIVE); NITRITE URINE NEGATIVE (NEGATIVE); OCCULT BLOOD URINE NEGATIVE (NEGATIVE); PROTEIN URINE 1+ (NEGATIVE); SPECIFIC GRAVITY URINE 1.023 (1.005-1.030)
[2020-03-21 08:23] VITALS: BP 166/117
== END 2020-03-21 08:27 | disposition home or self-care (01) ==
LOC: ER 04:43
DX: L03.116 Cellulitis of left lower limb (principal); L03.115 Cellulitis of right lower limb; I11.0 Hypertensive heart disease with heart failure; I50.9 Heart failure, unspecified; F17.290 Nicotine dependence, other tobacco product, uncomplicated; F15.10 Other stimulant abuse, uncomplicated; Z79.899 Other long term (current) drug therapy
CPT/HCPCS: 36415; 80048; 80076; 81003; 84484; 85025; 93005; 93970; 99285

== ENCOUNTER 2020-08-08 00:17 | Inpatient (IN) | payer MEDICAID ==
[~2020-08-08] VITALS: Ht 175.3 cm; Wt 105.7 kg
[~2020-08-08 00:17] MED LIST changes: +ALBU18HF2 IH; -APIX5TAB PO; +CEPH500C2 MT; +DILT180C66 MT; +POTA20TA82 MT
[2020-08-08] MEDS ORDERED: SODIUM CHLORIDE 0.9% 1000ML BAG (SEPSIS BOLUS) IV ONE (01:00)
[2020-08-08 01:29] LABS: BASOPHILS % 0.9 % (0.0-2.0); EOSINOPHILS % 1.2 % (0.0-5.0); HEMATOCRIT. 51.4 % (42.0-52.0); HEMOGLOBIN. 17.2 g/dL (14.0-18.0); LYMPHOCYTES % 30.8 % (20.0-50.0); MEAN CORPUSCULAR HEMOGLOBIN 29.8 pg (28.0-32.0); MEAN CORPUSCULAR VOLUME 89.3 fL (80.0-94.0); MEAN PLATELET VOLUME 9.5 fl (7.4-10.4); MONOCYTES % 5.4 % (2.0-8.0); NEUTROPHILS % 61.7 % (40.0-76.0); PLATELET 340 x1000/uL (130-400); RED BLOOD CELL COUNT 5.76 mill/uL (4.7-6.1); RED CELL DISTRIBUTION WIDTH 15.2 % (11.6-14.6)
[2020-08-08 01:34] LABS: CHLORIDE 110 mEq/L (98-107)
[2020-08-08 01:38] LABS: ETHANOL BLOOD < 10 mg/dL
[2020-08-08 01:48] LABS: INR 1.1; PROTHROMBIN TIME 11.4 sec (9.6-11.0)
[2020-08-08] MEDS ORDERED: CEFTRIAXONE 1 G PREMIX 50 ML IV NR (02:30)
[2020-08-08 02:47] LABS: CLARITY URINE CLEAR (CLEAR); COLOR URINE YELLOW (YELLOW); KETONES URINE TRACE (NEGATIVE); LEUKOCYTE ESTERASE URINE NEGATIVE (NEGATIVE); NITRITE URINE NEGATIVE (NEGATIVE); OCCULT BLOOD URINE NEGATIVE (NEGATIVE); PROTEIN URINE TRACE (NEGATIVE); SPECIFIC GRAVITY URINE 1.025 (1.005-1.030)
[2020-08-08 02:59] LABS: *AMPHETAMINES SCREEN URINE PRESUMTIVE POSITIVE (NEGATIVE); *BENZODIAZEPINES SCREEN URINE NEGATIVE (NEGATIVE); CANNABINOID URINE SCREEN NEGATIVE (NEGATIVE); METHADONE URINE SCREEN NEGATIVE (NEGATIVE); OPIATES URINE SCREEN NEGATIVE (NEGATIVE); PHENCYCLIDINE URINE SCREEN NEGATIVE (NEGATIVE)
[2020-08-08 03:00] LABS: *BARBITURATES SCREEN URINE NEGATIVE (NEGATIVE)
[2020-08-08 05:17] LABS: *COCAINE SCREEN URINE NEGATIVE (NEGATIVE)
[2020-08-08] MEDS ORDERED: DIPHENHYDRAMINE 50MG/ML VIAL IV PRN (07:15)
[2020-08-08] MEDS ORDERED: ENOXAPARIN 40MG/0.4ML SYR SUBCUT SCH (07:15)
[2020-08-08] MEDS ORDERED: ACETAMINOPHEN 650MG/20.3ML UDC GT PRN ×2 (07:15)
[2020-08-08] MEDS ORDERED: ONDANSETRON HCL 4MG/2ML INJ IV PRN (07:15)
[2020-08-08] MEDS ORDERED: CLONIDINE 0.1MG TABLET PO PRN (07:15)
[2020-08-08] MEDS ORDERED: NA PHOS,M-B/NA PHOS,DI-BA ENEMA 118ML PR PRN (07:15)
[2020-08-08] MEDS: ENOXAPARIN 30MG/0.3ML SYR SUBCUT SCH ×2 (10:26→20:12)
[2020-08-08] MEDS: AMLODIPINE 10MG TABLET PO SCH (10:26)
[2020-08-08 11:52] VITALS: BP 149/100
[2020-08-08 12:00] VITALS: BP 134/91
[2020-08-08] MEDS ORDERED: DEXTROSE 50% WATER 50ML SYRINGE IV PRN (12:00)
[2020-08-08] MEDS: BLOOD SUGAR DIAGNOSTIC STRIP TEST SCH ×3 (12:21→20:09)
[2020-08-08] MEDS: INSULIN LISPRO 100 UNITS/ML SUBCUT SCH ×3 (12:40→20:09)
[2020-08-08 16:00] VITALS: BP 134/91
[2020-08-08 17:05] LABS: CREATINE KINASE 61 IU/L (39-308)
[2020-08-08 17:07] LABS: CREATINE KINASE MB FRACTION 2.4 ng/mL (0.5-3.6)
[2020-08-08 20:00] VITALS: BP 97/56
[2020-08-09] VITALS: BP_SYST 110; BP_SYST 157; BP_DIAS 45; BP_DIAS 90
[2020-08-09 01:15] LABS: CREATINE KINASE 60 IU/L (39-308)
[2020-08-09 01:16] LABS: CREATINE KINASE MB FRACTION 1.9 ng/mL (0.5-3.6)
[2020-08-09 04:00] VITALS: BP 134/93
[2020-08-09] MEDS: BLOOD SUGAR DIAGNOSTIC STRIP TEST SCH ×4 (06:20→20:26)
[2020-08-09 06:21] LABS: BASOPHILS % 0.5 % (0.0-2.0); EOSINOPHILS % 2.2 % (0.0-5.0); HEMATOCRIT. 42.9 % (42.0-52.0); HEMOGLOBIN. 14.5 g/dL (14.0-18.0); LYMPHOCYTES % 27.6 % (20.0-50.0); MEAN CORPUSCULAR HEMOGLOBIN 30.1 pg (28.0-32.0); MEAN CORPUSCULAR VOLUME 89.1 fL (80.0-94.0); MEAN PLATELET VOLUME 9.9 fl (7.4-10.4); MONOCYTES % 6.4 % (2.0-8.0); NEUTROPHILS % 63.3 % (40.0-76.0); PLATELET 221 x1000/uL (130-400); RED BLOOD CELL COUNT 4.81 mill/uL (4.7-6.1); RED CELL DISTRIBUTION WIDTH 14.7 % (11.6-14.6)
[2020-08-09] MEDS: INSULIN LISPRO 100 UNITS/ML SUBCUT SCH ×4 (06:21→20:26)
[2020-08-09 06:52] LABS: CHLORIDE 110 mEq/L (98-107)
[2020-08-09 07:03] LABS: HDL CHOLESTEROL 37 mg/dL (40-59); LDL CHOLESTEROL 50 mg/dL (5-100)
[2020-08-09 08:00] VITALS: BP 117/91
[2020-08-09] MEDS: AMLODIPINE 10MG TABLET PO SCH (09:14)
[2020-08-09] MEDS: ENOXAPARIN 30MG/0.3ML SYR SUBCUT SCH ×2 (09:14→20:27)
[2020-08-09 12:00] VITALS: BP 145/95
[2020-08-09 15:56] LABS: CREATINE KINASE 53 IU/L (39-308)
[2020-08-09 15:57] LABS: CREATINE KINASE MB FRACTION 1.8 ng/mL (0.5-3.6); T4 FREE 1.17 ng/dL (0.76-1.46)
[2020-08-09 16:00] VITALS: BP 134/89
[2020-08-09 20:00] VITALS: BP 109/64
[2020-08-10] VITALS: BP 120/62
[2020-08-10 00:13] LABS: CREATINE KINASE 56 IU/L (39-308)
[2020-08-10 00:15] LABS: CREATINE KINASE MB FRACTION 1.2 ng/mL (0.5-3.6)
[2020-08-10 04:00] VITALS: BP 137/88
[2020-08-10] MEDS: BLOOD SUGAR DIAGNOSTIC STRIP TEST SCH ×2 (06:38→12:10)
[2020-08-10] MEDS: INSULIN LISPRO 100 UNITS/ML SUBCUT SCH ×2 (06:39→12:40)
[2020-08-10 07:16] LABS: CREATINE KINASE 46 IU/L (39-308)
[2020-08-10 07:17] LABS: CREATINE KINASE MB FRACTION 1.3 ng/mL (0.5-3.6)
[2020-08-10 08:51] VITALS: BP 129/91
[2020-08-10] MEDS: AMLODIPINE 10MG TABLET PO SCH (09:21)
[2020-08-10] MEDS: ENOXAPARIN 30MG/0.3ML SYR SUBCUT SCH (09:24)
[2020-08-10] MEDS ORDERED: AMLO5TAB4 MT (11:58)
[2020-08-10 12:09] VITALS: BP 129/91
== END 2020-08-10 14:40 | disposition home or self-care (01) | DRG 243 ==
LOC: ER 00:17 → 8WST 04:28 → EDBEDREQTM 04:36 → EDBEDREQ 04:36 → EDBEDREQSVC 04:36 → ENRESERV 08:09
PROVIDERS: ADMIT Family Medicine; ATTEND Family Medicine
DX: K21.9 Gastro-esophageal reflux disease without esophagitis (principal); I24.8 Other forms of acute ischemic heart disease; I11.0 Hypertensive heart disease with heart failure; I50.9 Heart failure, unspecified; E11.9 Type 2 diabetes mellitus without complications; R32 Unspecified urinary incontinence; M54.9 Dorsalgia, unspecified; F15.10 Other stimulant abuse, uncomplicated; E66.9 Obesity, unspecified; R00.0 Tachycardia, unspecified; Z59.0 Homelessness; Z99.3 Dependence on wheelchair; Z79.84 Long term (current) use of oral hypoglycemic drugs; Z79.2 Long term (current) use of antibiotics; Z79.899 Other long term (current) drug therapy; Z68.34 Body mass index [BMI] 34.0-34.9, adult
CPT/HCPCS: 36415; 71045; 72050; 72070; 72220; 80053; 80061; 80305; 80320; 81003; 82550; 82553; 82962; 83036; 83605; 83880; 84145; 84439; 84443; 84484; 85025; 85379; 93005; 93306; 97166; 99291; J0696; J1650; J2405; J7030; G0480

== ENCOUNTER 2020-10-22 09:36 | Inpatient (IN) | payer MEDICAID ==
[~2020-10-22] VITALS: Ht 175.3 cm; Wt 65.8 kg
[~2020-10-22 09:36] MED LIST changes: +AMLO5TAB4 MT
[2020-10-22] MEDS ORDERED: SODIUM CHLORIDE 0.9% 1,000 ML IV ONE (10:00)
[2020-10-22 10:09] LABS: BASOPHILS % 0.5 % (0.0-2.0); EOSINOPHILS % 0.9 % (0.0-5.0); HEMATOCRIT. 46.1 % (42.0-52.0); HEMOGLOBIN. 15.8 g/dL (14.0-18.0); LYMPHOCYTES % 15.8 % (20.0-50.0); MEAN CORPUSCULAR VOLUME 87.5 fL (80.0-94.0); MONOCYTES % 7.9 % (2.0-8.0); NEUTROPHILS % 74.9 % (40.0-76.0); PLATELET 237 x1000/uL (130-400); RED BLOOD CELL COUNT 5.27 mill/uL (4.7-6.1); RED CELL DISTRIBUTION WIDTH 14.7 % (11.6-14.6)
[2020-10-22 10:16] LABS: CHLORIDE 104 mEq/L (98-107)
[2020-10-22 10:21] LABS: INR 1.1; PROTHROMBIN TIME 11.6 sec (9.6-11.0)
[2020-10-22] MEDS ORDERED: MORPHINE SULFATE 4 MG/ML CPJ (NOT FOR IM USE) IV ONE (13:30)
[2020-10-22] MEDS ORDERED: IOHEXOL-300 100 ML BOTTLE ONE (14:47)
[2020-10-22 18:15] VITALS: BP 137/96
[2020-10-22] MEDS ORDERED: FURO-151 PO (18:33)
[2020-10-22] MEDS ORDERED: vitamin d3 PO (18:36)
[2020-10-22] MEDS ORDERED: SILD20TA PO (18:36)
[2020-10-22] MEDS ORDERED: IBUP-2028 MT (18:36)
[2020-10-22] MEDS ORDERED: *PATIENT'S OWN MEDICATION STORAGE XX SCH (19:15)
[2020-10-22 20:00] VITALS: BP_SYST 137; BP_SYST 145; BP_DIAS 105; BP_DIAS 96
[2020-10-22] MEDS: BLOOD SUGAR DIAGNOSTIC STRIP TEST SCH (21:00)
[2020-10-22] MEDS ORDERED: HYDROCODONE/ACETAMINOPHEN 10/325MG TABLET PO PRN (21:00)
[2020-10-22] MEDS ORDERED: ONDANSETRON HCL 4MG/2ML INJ IV PRN (21:00)
[2020-10-22] MEDS ORDERED: DEXTROSE 50% WATER 50ML SYRINGE IV PRN (21:00)
[2020-10-22] MEDS ORDERED: DIPHENOXYLATE/ATROPINE 2.5/0.025MG TABLET PO PRN (21:00)
[2020-10-22] MEDS: INSULIN LISPRO 100 UNITS/ML SUBCUT SCH (21:00)
[2020-10-22] MEDS ORDERED: CLONIDINE 0.1MG TABLET PO PRN (21:00)
[2020-10-22] MEDS ORDERED: IPRATROPIUM/ALBUTEROL 0.5-3(2.5)MG/3ML NEB HHN PRN (21:00)
[2020-10-22] MEDS ORDERED: NALOXONE HCL 0.4MG/ML VIAL IV PRN (21:30)
[2020-10-22 22:18] LABS: CLARITY URINE CLEAR (CLEAR); COLOR URINE DARK YELLOW (YELLOW); KETONES URINE TRACE (NEGATIVE); LEUKOCYTE ESTERASE URINE NEGATIVE (NEGATIVE); NITRITE URINE NEGATIVE (NEGATIVE); OCCULT BLOOD URINE NEGATIVE (NEGATIVE); PH URINE 5.5 (4.5-8.0); PROTEIN URINE NEGATIVE (NEGATIVE); SPECIFIC GRAVITY URINE 1.052 (1.005-1.030)
[2020-10-23] VITALS: BP 146/97
[2020-10-23] MEDS: METOPROLOL TARTRATE 50MG TABLET PO SCH ×3 (02:13→21:18)
[2020-10-23] MEDS ORDERED: AMIODARONE HCL 200 MG TABLET PO SCH (02:15)
[2020-10-23] MEDS ORDERED: DILTIAZEM HCL 180MG CAPSULE CD 24HR PO SCH (02:15)
[2020-10-23 04:00] VITALS: BP 131/92
[2020-10-23] MEDS: BLOOD SUGAR DIAGNOSTIC STRIP TEST SCH ×4 (06:27→21:18)
[2020-10-23] MEDS: INSULIN LISPRO 100 UNITS/ML SUBCUT SCH ×4 (06:27→21:00)
[2020-10-23 06:36] LABS: CHLORIDE 107 mEq/L (98-107)
[2020-10-23 06:42] LABS: BASOPHILS % 0.4 % (0.0-2.0); EOSINOPHILS % 1.3 % (0.0-5.0); HEMATOCRIT. 47.6 % (42.0-52.0); HEMOGLOBIN. 15.7 g/dL (14.0-18.0); LYMPHOCYTES % 23.3 % (20.0-50.0); MEAN CORPUSCULAR HEMOGLOBIN 29.3 pg (28.0-32.0); MEAN CORPUSCULAR VOLUME 88.7 fL (80.0-94.0); MEAN PLATELET VOLUME 9.8 fl (7.4-10.4); MONOCYTES % 7.1 % (2.0-8.0); NEUTROPHILS % 67.9 % (40.0-76.0); PLATELET 244 x1000/uL (130-400); RED BLOOD CELL COUNT 5.37 mill/uL (4.7-6.1); RED CELL DISTRIBUTION WIDTH 14.5 % (11.6-14.6)
[2020-10-23 06:43] LABS: LDL CHOLESTEROL 38 mg/dL (5-100)
[2020-10-23 06:45] LABS: HDL CHOLESTEROL 34 mg/dL (40-59)
[2020-10-23 08:00] VITALS: BP 113/85
[2020-10-23] MEDS: POTASSIUM CHLORIDE 20MEQ TABLET SR PO SCH (09:05)
[2020-10-23] MEDS: FUROSEMIDE 40MG TABLET PO SCH (09:05)
[2020-10-23] MEDS: AMIODARONE HCL 200 MG TABLET PO SCH (09:06)
[2020-10-23] MEDS: METFORMIN HCL 500MG TABLET PO SCH ×2 (09:06→17:46)
[2020-10-23] MEDS: DILTIAZEM HCL 180MG CAPSULE CD 24HR PO SCH (09:06)
[2020-10-23 12:30] VITALS: BP 127/85
[2020-10-23 16:22] VITALS: BP 104/61
[2020-10-23 20:00] VITALS: BP 128/82
[2020-10-24] VITALS (8 sets, daily range): BP systolic 92–136; BP diastolic 56–95
[2020-10-24] MEDS: BLOOD SUGAR DIAGNOSTIC STRIP TEST SCH ×4 (06:23→21:46)
[2020-10-24] MEDS: INSULIN LISPRO 100 UNITS/ML SUBCUT SCH ×4 (06:23→21:00)
[2020-10-24] MEDS: DILTIAZEM HCL 180MG CAPSULE CD 24HR PO SCH (09:01)
[2020-10-24] MEDS: AMIODARONE HCL 200 MG TABLET PO SCH (09:01)
[2020-10-24] MEDS: METFORMIN HCL 500MG TABLET PO SCH ×2 (09:01→18:24)
[2020-10-24] MEDS: POTASSIUM CHLORIDE 20MEQ TABLET SR PO SCH (09:01)
[2020-10-24] MEDS: METOPROLOL TARTRATE 50MG TABLET PO SCH ×2 (09:01→21:45)
[2020-10-24] MEDS: FUROSEMIDE 40MG TABLET PO SCH (09:01)
[2020-10-25] VITALS: BP 130/82
[2020-10-25 04:00] VITALS: BP 130/84
[2020-10-25] MEDS: BLOOD SUGAR DIAGNOSTIC STRIP TEST SCH ×2 (07:48→13:14)
[2020-10-25] MEDS: INSULIN LISPRO 100 UNITS/ML SUBCUT SCH ×2 (07:48→12:50)
[2020-10-25 08:00] VITALS: BP 135/88
[2020-10-25] MEDS: METOPROLOL TARTRATE 50MG TABLET PO SCH (08:39)
[2020-10-25] MEDS: AMIODARONE HCL 200 MG TABLET PO SCH (08:39)
[2020-10-25] MEDS: METFORMIN HCL 500MG TABLET PO SCH (08:39)
[2020-10-25] MEDS: FUROSEMIDE 40MG TABLET PO SCH (08:39)
[2020-10-25] MEDS: POTASSIUM CHLORIDE 20MEQ TABLET SR PO SCH (08:39)
[2020-10-25] MEDS: DILTIAZEM HCL 180MG CAPSULE CD 24HR PO SCH (08:40)
[2020-10-25] MEDS ORDERED: AMI2 PO (10:52)
[2020-10-25] MEDS ORDERED: DILT180C66 MT (10:52)
[2020-10-25] MEDS ORDERED: POTA20TA82 MT (10:52)
[2020-10-25] MEDS ORDERED: FURO-151 PO (10:52)
[2020-10-25] MEDS ORDERED: SILD20TA PO (10:52)
[2020-10-25] MEDS ORDERED: METF-414 MT (10:52)
[2020-10-25 12:00] VITALS: BP 128/83
[2020-10-25 14:39] VITALS: BP 131/78
== END 2020-10-25 15:45 | disposition home or self-care (01) | DRG 194 ==
LOC: ER 09:46 → 6WST 13:47 → ENRESERV 15:08 → 6WST 17:01
PROVIDERS: ADMIT Internal Medicine; ATTEND Internal Medicine
DX: I11.0 Hypertensive heart disease with heart failure (principal); E44.1 Mild protein-calorie malnutrition; I27.20 Pulmonary hypertension, unspecified; R10.9 Unspecified abdominal pain; I50.33 Acute on chronic diastolic (congestive) heart failure; E66.9 Obesity, unspecified; F15.90 Other stimulant use, unspecified, uncomplicated; I48.91 Unspecified atrial fibrillation; K80.20 Calculus of gallbladder without cholecystitis without obstruction; R73.03 Prediabetes; K82.8 Other specified diseases of gallbladder; R19.7 Diarrhea, unspecified; M16.0 Bilateral primary osteoarthritis of hip; Z20.822 Contact with and (suspected) exposure to COVID-19; Z68.21 Body mass index [BMI] 21.0-21.9, adult; Z71.3 Dietary counseling and surveillance; Z71.51 Drug abuse counseling and surveillance of drug abuser
CPT/HCPCS: 36415; 71045; 74177; 76705; 80048; 80053; 80061; 81003; 82962; 83036; 83880; 85025; 87426; 99285; J2270; J7030; Q9967

== ENCOUNTER 2021-02-02 18:55 | Emergency (ER) | payer MEDICAID ==
[~2021-02-02 18:55] MED LIST changes: -ALBU18HF2 IH; -AMLO5TAB4 MT; -CEPH500C2 MT; -FURO-151 MT; +FURO-151 PO; +IBUP-2028 MT; +SILD20TA PO; +vitamin d3 PO
== END 2021-02-02 20:33 | disposition left against medical advice (07) ==
LOC: ER 18:55
DX: Z53.21 Procedure and treatment not carried out due to patient leaving prior to being seen by health care provider (principal)

== ENCOUNTER 2021-02-08 11:00 | Emergency (ER) | payer MEDICAID ==
[~2021-02-08] VITALS: Ht 175.3 cm; Wt 100.0 kg
[2021-02-08 12:10] VITALS: BP 166/110
== END 2021-02-08 18:58 | disposition left against medical advice (07) ==
LOC: ER 11:00
DX: R68.89 Other general symptoms and signs (principal); Z53.21 Procedure and treatment not carried out due to patient leaving prior to being seen by health care provider

== ENCOUNTER 2021-02-13 12:28 | Emergency (ER) | payer MEDICAID ==
[~2021-02-13] VITALS: Ht 175.3 cm; Wt 100.0 kg
[2021-02-13] MEDS ORDERED: ASPIRIN 325MG EC TABLET PO ONE (13:30)
[2021-02-13] MEDS ORDERED: LACTATED RINGERS 1,000 ML IV SCH ×2 (15:15)
[2021-02-13 15:24] LABS: BASOPHILS % 0.4 % (0.0-2.0); HEMATOCRIT. 49.8 % (42.0-52.0); LYMPHOCYTES % 25.3 % (20.0-50.0); MEAN CORPUSCULAR HEMOGLOBIN 29.3 pg (28.0-32.0); MEAN CORPUSCULAR VOLUME 91.2 fL (80.0-94.0); MEAN PLATELET VOLUME 8.8 fl (7.4-10.4); MONOCYTES % 7.2 % (2.0-8.0); NEUTROPHILS % 66.1 % (40.0-76.0); PLATELET 260 x1000/uL (130-400); RED BLOOD CELL COUNT 5.46 mill/uL (4.7-6.1); RED CELL DISTRIBUTION WIDTH 14.6 % (11.6-14.6)
[2021-02-13 15:30] LABS: CHLORIDE 107 mEq/L (98-107)
[2021-02-13] MEDS ORDERED: MAGNESIUM 2 G PREMIX 50 ML IV ONE (15:30)
[2021-02-13 20:25] VITALS: BP 95/62
== END 2021-02-13 21:55 | disposition home or self-care (01) ==
LOC: ER 12:28 → CANBEDREQ 02-14 16:41
DX: R00.0 Tachycardia, unspecified (principal); R07.89 Other chest pain; F15.10 Other stimulant abuse, uncomplicated; I24.8 Other forms of acute ischemic heart disease; E11.9 Type 2 diabetes mellitus without complications; I10 Essential (primary) hypertension; Z79.899 Other long term (current) drug therapy
CPT/HCPCS: 36415; 71045; 80053; 83880; 84484; 85025; 93005; 93970; 96365; 99285; J3475

== ENCOUNTER 2021-05-05 13:41 | Emergency (ER) | payer MEDICAID ==
[~2021-05-05] VITALS: Ht 175.3 cm; Wt 100.0 kg
[2021-05-05] MEDS: SODIUM CHLORIDE 0.9% 1,000 ML IV ONE (14:34)
[2021-05-05] MEDS: ADENOSINE 3 MG/ML 2ML VIAL IV ONE ×2 (14:40→14:58)
[2021-05-05 14:43] LABS: BASOPHILS % 0.5 % (0.0-2.0); HEMOGLOBIN. 17.8 g/dL (14.0-18.0); LYMPHOCYTES % 21.3 % (20.0-50.0); MEAN CORPUSCULAR HEMOGLOBIN 29.1 pg (28.0-32.0); MEAN CORPUSCULAR VOLUME 88.3 fL (80.0-94.0); MEAN PLATELET VOLUME 9.4 fl (7.4-10.4); MONOCYTES % 7.2 % (2.0-8.0); PLATELET 299 x1000/uL (130-400); RED BLOOD CELL COUNT 6.11 mill/uL (4.7-6.1); RED CELL DISTRIBUTION WIDTH 15.3 % (11.6-14.6)
[2021-05-05 14:50] LABS: CHLORIDE 100 mEq/L (98-107)
[2021-05-05 17:19] VITALS: BP 111/79
== END 2021-05-05 17:22 | disposition home or self-care (01) ==
LOC: ER 13:41
DX: I47.1 Supraventricular tachycardia (principal); F15.10 Other stimulant abuse, uncomplicated; E11.9 Type 2 diabetes mellitus without complications; I10 Essential (primary) hypertension
CPT/HCPCS: 36415; 71045; 80053; 82962; 83880; 84484; 85025; 93005; 96361; 96374; 99291; J0153; J7030

== ENCOUNTER 2022-03-14 15:51 | Emergency (ER) | payer MEDICAID ==
[~2022-03-14] VITALS: Ht 175.3 cm; Wt 100.0 kg
[~2022-03-14 15:51] MED LIST changes: +POTA-205 MT; -POTA20TA82 MT
[2022-03-14 16:08] VITALS: BP 169/104
== END 2022-03-14 21:31 | disposition left against medical advice (07) ==
LOC: ER 18:01
DX: Z53.21 Procedure and treatment not carried out due to patient leaving prior to being seen by health care provider (principal)
CPT/HCPCS: 82962

== ENCOUNTER 2022-08-11 11:06 | Emergency (ER) | payer MEDICAID ==
[~2022-08-11] VITALS: Ht 167.6 cm; Wt 93.0 kg
[2022-08-11 11:10] VITALS: O2SAT 96
[2022-08-11 11:40] VITALS: TEMP 98.5
[2022-08-11 11:59] LABS: BASOPHILS % 0.3 % (0.0-2.0); HEMATOCRIT. 52.7 % (42.0-52.0); HEMOGLOBIN. 17.7 g/dL (14.0-18.0); LYMPHOCYTES % 17.5 % (20.0-50.0); MEAN CORPUSCULAR HEMOGLOBIN 30.3 pg (28.0-32.0); MEAN CORPUSCULAR VOLUME 90.5 fL (80.0-94.0); MEAN PLATELET VOLUME 9.7 fl (7.4-10.4); MONOCYTES % 5.2 % (2.0-8.0); PLATELET 264 x1000/uL (130-400); RED BLOOD CELL COUNT 5.83 mill/uL (4.7-6.1); RED CELL DISTRIBUTION WIDTH 14.7 % (11.6-14.6)
[2022-08-11 12:09] LABS: CHLORIDE 106 mEq/L (98-107)
[2022-08-11 12:18] LABS: ETHANOL BLOOD < 10 mg/dL (-10)
[2022-08-11 13:00] VITALS: BP 110/68; PULSE 72; RESP 16
== END 2022-08-11 13:00 | disposition home or self-care (01) ==
LOC: ER 11:36
DX: I11.0 Hypertensive heart disease with heart failure (principal); I50.9 Heart failure, unspecified; E11.9 Type 2 diabetes mellitus without complications; J44.1 Chronic obstructive pulmonary disease with (acute) exacerbation
CPT/HCPCS: 80053; 80320; 83880; 83690; 85025; 84484; 36415; 71045; 93005; 99285; Z7610 ×3; G0480

== ENCOUNTER 2022-10-08 15:59 | Emergency (ER) | payer MEDICAID ==
[~2022-10-08] VITALS: Ht 175.3 cm; Wt 105.0 kg
[2022-10-08 16:10] VITALS: O2SAT 97
[2022-10-08 17:07] LABS: BASOPHILS % 0.7 % (0.0-2.0); EOSINOPHILS % 1.2 % (0.0-5.0); HEMATOCRIT. 44.8 % (42.0-52.0); HEMOGLOBIN. 14.6 g/dL (14.0-18.0); LYMPHOCYTES % 24.8 % (20.0-50.0); MEAN CORPUSCULAR HEMOGLOBIN 28.8 pg (28.0-32.0); MEAN CORPUSCULAR HGB CONC 32.5 g/dL (31.0-37.0); MEAN CORPUSCULAR VOLUME 88.6 fL (80.0-94.0); MEAN PLATELET VOLUME 9.1 fl (7.4-10.4); NEUTROPHILS % 64.3 % (40.0-76.0); PLATELET 233 x1000/uL (130-400); RED BLOOD CELL COUNT 5.06 mill/uL (4.7-6.1); RED CELL DISTRIBUTION WIDTH 15.1 % (11.6-14.6); WHITE BLOOD COUNT 8.6 x1000/uL (4.5-11.0)
[2022-10-08 17:08] LABS: CLARITY URINE CLEAR (CLEAR); COLOR URINE YELLOW (YELLOW); GLUCOSE URINE NEGATIVE (NEGATIVE); KETONES URINE NEGATIVE (NEGATIVE); LEUKOCYTE ESTERASE URINE NEGATIVE (NEGATIVE); NITRITE URINE NEGATIVE (NEGATIVE); OCCULT BLOOD URINE NEGATIVE (NEGATIVE); PROTEIN URINE TRACE (NEGATIVE); SPECIFIC GRAVITY URINE 1.022 (1.005-1.030)
[2022-10-08 17:11] LABS: BACTERIA URINE NONE SEEN; RBC URINE NONE SEEN /hpf (0-2); WBC URINE 0-2 /hpf (0-2); YEAST URINE NONE SEEN
[2022-10-08 17:16] LABS: CHLORIDE 107 mEq/L (98-107); INDEX HEMOLYSI 1 (1-3); INDEX ICTERIC 1 (1-4); INDEX LIPEMIC 1 (1-3); POTASSIUM 3.6 mEq/L (3.5-5.1); SODIUM 138 mEq/L (136-145)
[2022-10-08 17:24] LABS: ALANINE AMINOTRANSFERASE 16 IU/L (13-61); ALBUMIN 3.5 g/dL (3.4-5.0); ASPARTATE AMINOTRANSFERASE 10 IU/L (15-37); BILIRUBIN TOTAL 1.5 mg/dL (0.1-1.0); CARBON DIOXIDE 26 mEq/L (21-32); CREATININE 0.9 mg/dL (0.6-1.3); GLUCOSE 123 mg/dL (70-105); NT PRO B-TYPE NATRIURETIC PEP 1584 pg/mL (5-125); PROTEIN TOTAL 7.3 g/dL (6.0-8.3); UREA NITROGEN BLOOD 14 mg/dL (7-21)
[2022-10-08 17:26] LABS: SQUAMOUS EPITHELIAL CELL URINE 1+ /lpf (RARE/1+)
[2022-10-08] MEDS ORDERED: DILTIAZEM HCL 5MG/ML 5ML VIAL IV ONE (18:15)
[2022-10-08 18:34] LABS: CHLORIDE 106 mEq/L (98-107); INDEX HEMOLYSI 3 (1-3); INDEX ICTERIC 1 (1-4); INDEX LIPEMIC 1 (1-3); POTASSIUM 3.8 mEq/L (3.5-5.1); SODIUM 138 mEq/L (136-145)
[2022-10-08 18:40] LABS: ALANINE AMINOTRANSFERASE 16 IU/L (13-61); ALBUMIN 3.3 g/dL (3.4-5.0); ASPARTATE AMINOTRANSFERASE 13 IU/L (15-37); BILIRUBIN TOTAL 1.3 mg/dL (0.1-1.0); CALCIUM 8.1 mg/dL (8.5-10.1); CARBON DIOXIDE 29 mEq/L (21-32); GLUCOSE 106 mg/dL (70-105); PROTEIN TOTAL 6.9 g/dL (6.0-8.3); UREA NITROGEN BLOOD 14 mg/dL (7-21)
[2022-10-08 21:03] LABS: *AMPHETAMINES SCREEN URINE PRESUMTIVE POSITIVE (NEGATIVE); *BARBITURATES SCREEN URINE NEGATIVE (NEGATIVE); *BENZODIAZEPINES SCREEN URINE NEGATIVE (NEGATIVE); *COCAINE SCREEN URINE NEGATIVE (NEGATIVE); CANNABINOID URINE SCREEN NEGATIVE (NEGATIVE); ECSTASY MDMA SCREEN URINE CONF.TEST INDICATED (NEGATIVE); METHADONE URINE SCREEN NEGATIVE (NEGATIVE); OPIATES URINE SCREEN NEGATIVE (NEGATIVE); PHENCYCLIDINE URINE SCREEN NEGATIVE (NEGATIVE)
[2022-10-08 21:05] VITALS: BP 138/81; PULSE 95; RESP 16; TEMP 98.2
== END 2022-10-08 21:15 | disposition home or self-care (01) ==
LOC: ER 15:59
DX: F15.10 Other stimulant abuse, uncomplicated (principal); R07.89 Other chest pain; I11.0 Hypertensive heart disease with heart failure; I50.9 Heart failure, unspecified; E11.9 Type 2 diabetes mellitus without complications; J44.9 Chronic obstructive pulmonary disease, unspecified; M19.90 Unspecified osteoarthritis, unspecified site
CPT/HCPCS: 80053; 80305; 81003; 83880; 85025; 85379; 36415; 71045; 93005; 96374; 99285; J3490; Z7610 ×2

== ENCOUNTER 2022-10-19 15:51 | Emergency (ER) | payer MEDICAID ==
[~2022-10-19] VITALS: Ht 175.3 cm; Wt 104.0 kg
[2022-10-19 16:18] VITALS: BP 162/97; PULSE 110; RESP 16; O2SAT 99
== END 2022-10-19 18:05 | disposition left against medical advice (07) ==
LOC: ER 16:05
DX: I11.0 Hypertensive heart disease with heart failure (principal); I50.9 Heart failure, unspecified; F15.10 Other stimulant abuse, uncomplicated; E11.9 Type 2 diabetes mellitus without complications; J44.1 Chronic obstructive pulmonary disease with (acute) exacerbation
CPT/HCPCS: 71045; 93005; 99291

== ENCOUNTER 2022-10-27 03:27 | Emergency (ER) | payer MEDICAID ==
[~2022-10-27] VITALS: Ht 175.3 cm; Wt 104.0 kg
[2022-10-27 03:49] VITALS: BP 143/100; PULSE 120; RESP 20; TEMP 98.5; O2SAT 96
[2022-10-27 04:38] LABS: BASOPHILS % 0.5 % (0.0-2.0); HEMATOCRIT. 46.2 % (42.0-52.0); HEMOGLOBIN. 15.4 g/dL (14.0-18.0); LYMPHOCYTES % 14.2 % (20.0-50.0); MEAN CORPUSCULAR HEMOGLOBIN 29.7 pg (28.0-32.0); MEAN CORPUSCULAR HGB CONC 33.4 g/dL (31.0-37.0); MEAN CORPUSCULAR VOLUME 88.8 fL (80.0-94.0); MEAN PLATELET VOLUME 8.2 fl (7.4-10.4); MONOCYTES % 7.2 % (2.0-8.0); NEUTROPHILS % 77.1 % (40.0-76.0); PLATELET 352 x1000/uL (130-400); RED CELL DISTRIBUTION WIDTH 15.5 % (11.6-14.6); WHITE BLOOD COUNT 9.5 x1000/uL (4.5-11.0)
[2022-10-27 04:50] LABS: CHLORIDE 100 mEq/L (98-107); INDEX HEMOLYSI 1 (1-3); INDEX ICTERIC 1 (1-4); INDEX LIPEMIC 1 (1-3); POTASSIUM 3.5 mEq/L (3.5-5.1); SODIUM 136 mEq/L (136-145)
[2022-10-27 05:00] LABS: ALANINE AMINOTRANSFERASE 20 IU/L (13-61); ALBUMIN 3.6 g/dL (3.4-5.0); ASPARTATE AMINOTRANSFERASE 14 IU/L (15-37); BILIRUBIN TOTAL 1.3 mg/dL (0.1-1.0); CALCIUM 8.6 mg/dL (8.5-10.1); CARBON DIOXIDE 28 mEq/L (21-32); CREATININE 0.7 mg/dL (0.6-1.3); GLUCOSE 137 mg/dL (70-105); NT PRO B-TYPE NATRIURETIC PEP 674 pg/mL (5-125); PROTEIN TOTAL 8.2 g/dL (6.0-8.3); TROPONIN I HIGH SENSITIVITY 25 ng/L (<78); UREA NITROGEN BLOOD 11 mg/dL (7-21)
[2022-10-27] MEDS ORDERED: FUROSEMIDE 40MG/4ML VIAL IVP ONE (06:30)
== END 2022-10-27 06:30 | disposition left against medical advice (07) ==
LOC: ER 03:27
DX: M79.89 Other specified soft tissue disorders (principal); F15.10 Other stimulant abuse, uncomplicated; I11.0 Hypertensive heart disease with heart failure; I50.9 Heart failure, unspecified; E11.9 Type 2 diabetes mellitus without complications
CPT/HCPCS: 80053; 83880; 85025; 84484; 36415; 71045; 93005; 99285; Z7610

== ENCOUNTER 2023-04-18 08:45 | Emergency (ER) | payer MEDICAID ==
[~2023-04-18] VITALS: Ht 175.3 cm; Wt 100.0 kg
[~2023-04-18 08:45] MED LIST changes: +APIX5TAB MT; -DILT180C66 MT; -IBUP-2028 MT; +LIP40 PO; +METO25TA6 PO; -vitamin d3 PO
[2023-04-18 08:47] VITALS: O2SAT 96
[2023-04-18 09:49] LABS: BASOPHILS % 0.5 % (0.0-2.0); HEMATOCRIT. 48.6 % (42.0-52.0); HEMOGLOBIN. 16.2 g/dL (14.0-18.0); MEAN CORPUSCULAR HEMOGLOBIN 30.1 pg (28.0-32.0); MEAN CORPUSCULAR HGB CONC 33.4 g/dL (31.0-37.0); MEAN CORPUSCULAR VOLUME 90.1 fL (80.0-94.0); MEAN PLATELET VOLUME 9.5 fl (7.4-10.4); MONOCYTES % 5.5 % (2.0-8.0); PLATELET 253 x1000/uL (130-400); RED BLOOD CELL COUNT 5.39 mill/uL (4.7-6.1); RED CELL DISTRIBUTION WIDTH 15.2 % (11.6-14.6)
[2023-04-18] MEDS: FUROSEMIDE 40MG TABLET PO ONE (09:50)
[2023-04-18 09:58] LABS: PROTHROMBIN TIME 11.5 sec (9.6-11.0)
[2023-04-18 10:05] LABS: ALANINE AMINOTRANSFERASE 15 IU/L (10-49); ALBUMIN 4.7 g/dL (3.2-4.8); ASPARTATE AMINOTRANSFERASE 18 IU/L (<34); BILIRUBIN TOTAL 1.9 mg/dL (0.1-1.0); CARBON DIOXIDE 29 mEq/L (21-32); CHLORIDE 104 mEq/L (98-107); CREATININE 0.8 mg/dL (0.6-1.3); GLUCOSE 119 mg/dL (70-105); POTASSIUM 4.3 mEq/L (3.5-5.1); PROTEIN TOTAL 8.1 g/dL (6.0-8.3); SODIUM 137 mEq/L (136-145); UREA NITROGEN BLOOD 13 mg/dL (9-23)
[2023-04-18] MEDS ORDERED: FURO-151 MT (11:07)
[2023-04-18 12:12] VITALS: BP 136/101; PULSE 107; RESP 12; TEMP 98.3
== END 2023-04-18 12:18 | disposition home or self-care (01) ==
LOC: ER 09:06
DX: R60.0 Localized edema (principal); I11.0 Hypertensive heart disease with heart failure; I50.9 Heart failure, unspecified; J44.9 Chronic obstructive pulmonary disease, unspecified; E11.9 Type 2 diabetes mellitus without complications; I25.2 Old myocardial infarction; F15.10 Other stimulant abuse, uncomplicated; Z79.899 Other long term (current) drug therapy
CPT/HCPCS: 36415; 80053; 83880; 85025; 93971; 99284

== ENCOUNTER 2023-10-04 13:08 | Emergency (ER) | payer MEDICAID ==
[~2023-10-04] VITALS: Ht 175.3 cm; Wt 99.8 kg
[~2023-10-04 13:08] MED LIST changes: -AMI2 PO; +BLOO-1113 XX; +CHOL2000 PO; -METF-414 MT; +POTA-204 PO; -POTA-205 MT; -SILD20TA PO
[2023-10-04 13:19] VITALS: O2SAT 95
[2023-10-04 13:56] VITALS: BP 111/78; PULSE 88; RESP 16; TEMP 98.3; O2SAT 96
[2023-10-04 15:04] LABS: BASOPHILS % 0.6 % (0.0-2.0); EOSINOPHILS % 0.8 % (0.0-5.0); HEMATOCRIT. 46.5 % (42.0-52.0); HEMOGLOBIN. 15.2 g/dL (14.0-18.0); LYMPHOCYTES % 18.3 % (20.0-50.0); MEAN CORPUSCULAR HEMOGLOBIN 30.3 pg (28.0-32.0); MEAN CORPUSCULAR HGB CONC 32.8 g/dL (31.0-37.0); MEAN CORPUSCULAR VOLUME 92.4 fL (80.0-94.0); MEAN PLATELET VOLUME 9.3 fl (7.4-10.4); MONOCYTES % 6.3 % (2.0-8.0); PLATELET 262 x1000/uL (130-400); RED BLOOD CELL COUNT 5.03 mill/uL (4.7-6.1); RED CELL DISTRIBUTION WIDTH 15.2 % (11.6-14.6); WHITE BLOOD COUNT 8.2 x1000/uL (4.5-11.0)
[2023-10-04 15:08] LABS: CHLORIDE 105 mEq/L (98-107); POTASSIUM 4.4 mEq/L (3.5-5.1); SODIUM 137 mEq/L (136-145)
[2023-10-04 15:09] LABS: CALCIUM 9.1 mg/dL (8.7-10.4); CARBON DIOXIDE 26 mEq/L (21-32)
[2023-10-04 15:14] LABS: CREATININE 0.9 mg/dL (0.6-1.3); GLUCOSE 135 mg/dL (70-105); UREA NITROGEN BLOOD 15 mg/dL (9-23)
[2023-10-04 15:15] LABS: TROPONIN I HIGH SENSITIVITY 17 ng/L (3.0-53)
[2023-10-04] MEDS ORDERED: ACETAMINOPHEN 325MG TABLET PO ONE (17:45)
== END 2023-10-04 18:15 | disposition left against medical advice (07) ==
LOC: ER 13:08
DX: R60.0 Localized edema (principal); E11.9 Type 2 diabetes mellitus without complications; I50.9 Heart failure, unspecified; I11.0 Hypertensive heart disease with heart failure
CPT/HCPCS: 36415; 71045; 80048; 84484; 85025; 93005; 99285

== ENCOUNTER 2023-12-17 19:18 | Emergency (ER) | payer MEDICAID ==
[~2023-12-17] VITALS: Ht 175.3 cm; Wt 100.0 kg
[~2023-12-17 19:18] MED LIST changes: -APIX5TAB MT; +CEPH500C2 MT; +METF-873 PO
[2023-12-17 20:34] VITALS: BP 138/88; PULSE 104; RESP 16; TEMP 97.9; O2SAT 98
[2023-12-17] MEDS ORDERED: VANCOMYCIN 1G PREMIX 200 ML IV SCH (20:45)
[2023-12-17 20:49] LABS: BASOPHILS % 0.5 % (0.0-2.0); EOSINOPHILS % 0.9 % (0.0-5.0); HEMATOCRIT. 47.6 % (42.0-52.0); HEMOGLOBIN. 16.1 g/dL (14.0-18.0); LYMPHOCYTES % 16.5 % (20.0-50.0); MEAN CORPUSCULAR HEMOGLOBIN 30.9 pg (28.0-32.0); MEAN CORPUSCULAR HGB CONC 33.9 g/dL (31.0-37.0); MEAN CORPUSCULAR VOLUME 91.1 fL (80.0-94.0); MEAN PLATELET VOLUME 9.6 fl (7.4-10.4); NEUTROPHILS % 76.1 % (40.0-76.0); PLATELET 271 x1000/uL (130-400); RED BLOOD CELL COUNT 5.22 mill/uL (4.7-6.1); RED CELL DISTRIBUTION WIDTH 14.8 % (11.6-14.6); WHITE BLOOD COUNT 9.9 x1000/uL (4.5-11.0)
[2023-12-17 20:58] LABS: CHLORIDE 104 mEq/L (98-107); POTASSIUM 3.1 mEq/L (3.5-5.1); SODIUM 141 mEq/L (136-145)
[2023-12-17 21:00] LABS: CALCIUM 9.4 mg/dL (8.7-10.4); CARBON DIOXIDE 29 mEq/L (21-32)
[2023-12-17] MEDS ORDERED: PIPERACILLIN/TAZO 3.375G/50ML 50 ML IV SCH (21:00)
[2023-12-17 21:05] LABS: CREATININE 0.9 mg/dL (0.6-1.3); GLUCOSE 158 mg/dL (70-105); UREA NITROGEN BLOOD 16 mg/dL (9-23)
[2023-12-17 21:06] LABS: ALANINE AMINOTRANSFERASE 15 IU/L (10-49)
[2023-12-17 21:07] LABS: ALBUMIN 4.1 g/dL (3.2-4.8); ASPARTATE AMINOTRANSFERASE 17 IU/L (<34); BILIRUBIN DIRECT 0.6 mg/dL (<=3.0); BILIRUBIN TOTAL 1.1 mg/dL (0.1-1.0); PROTEIN TOTAL 7.6 g/dL (6.0-8.3)
[2023-12-17] MEDS ORDERED: FUROSEMIDE 40MG TABLET PO ONE (22:15)
[2023-12-17] MEDS ORDERED: POTASSIUM CHLORIDE 20MEQ/PACKET PO ONE (22:15)
[2023-12-17] MEDS ORDERED: ACETAMINOPHEN 500MG TABLET PO ONE (22:15)
[2023-12-17 23:08] LABS: TROPONIN I HIGH SENSITIVITY 23 ng/L (3.0-53)
== END 2023-12-18 06:21 | disposition left against medical advice (07) ==
LOC: ER 19:18
DX: L03.115 Cellulitis of right lower limb (principal); L03.116 Cellulitis of left lower limb; I50.9 Heart failure, unspecified; J44.9 Chronic obstructive pulmonary disease, unspecified; Z79.899 Other long term (current) drug therapy; I11.0 Hypertensive heart disease with heart failure
CPT/HCPCS: 36415; 71045; 80048; 80076; 83880; 84484; 85025; 93005; 93970; 99285

== ENCOUNTER 2023-12-18 13:13 | Inpatient (IN) | payer MEDICAID ==
[~2023-12-18] VITALS: Ht 175.3 cm; Wt 98.4 kg
[2023-12-18] MEDS ORDERED: VANCOMYCIN 1G PREMIX 200 ML IV SCH (13:45)
[2023-12-18] MEDS: DILTIAZEM HCL 5MG/ML 5ML VIAL IV ONE (13:52)
[2023-12-18] MEDS: MORPHINE SULFATE 4 MG/ML INJ (FOR IV/IM USE) IV ONE (13:52)
[2023-12-18] MEDS: CEFTRIAXONE 1GM/50ML 50 ML IV ONE (14:01)
[2023-12-18 14:04] LABS: BASOPHILS % 0.7 % (0.0-2.0); HEMATOCRIT. 50.4 % (42.0-52.0); HEMOGLOBIN. 16.8 g/dL (14.0-18.0); LYMPHOCYTES % 19.5 % (20.0-50.0); MEAN CORPUSCULAR HEMOGLOBIN 30.6 pg (28.0-32.0); MEAN CORPUSCULAR HGB CONC 33.4 g/dL (31.0-37.0); MEAN CORPUSCULAR VOLUME 91.6 fL (80.0-94.0); MEAN PLATELET VOLUME 9.7 fl (7.4-10.4); NEUTROPHILS % 71.8 % (40.0-76.0); PLATELET 271 x1000/uL (130-400); RED BLOOD CELL COUNT 5.51 mill/uL (4.7-6.1); WHITE BLOOD COUNT 8.5 x1000/uL (4.5-11.0)
[2023-12-18 14:09] LABS: CARBON DIOXIDE 26 mEq/L (21-32); CHLORIDE 99 mEq/L (98-107); POTASSIUM 3.1 mEq/L (3.5-5.1); SODIUM 136 mEq/L (136-145)
[2023-12-18 14:14] LABS: GLUCOSE 247 mg/dL (70-105); UREA NITROGEN BLOOD 15 mg/dL (9-23)
[2023-12-18 14:15] LABS: TROPONIN I HIGH SENSITIVITY 22 ng/L (3.0-53)
[2023-12-18] MEDS: VANCOMYCIN 1GM PMX (XELLIA) 200 ML IV NR (14:15)
[2023-12-18 14:17] LABS: LACTIC ACID 3.9 mmol/L (0.4-2.0)
[2023-12-18] MEDS: SODIUM CHLORIDE 0.9% 250 ML IV ONE (14:38)
[2023-12-18] MEDS ORDERED: IPRATROPIUM/ALBUTEROL 0.5-3(2.5)MG/3ML NEB HHN PRN (17:45)
[2023-12-18] MEDS ORDERED: DOCUSATE SODIUM 100MG CAPSULE PO PRN (17:45)
[2023-12-18] MEDS ORDERED: ACETAMINOPHEN 325MG TABLET PO PRN (17:45)
[2023-12-18] MEDS ORDERED: ONDANSETRON HCL 4MG/2ML INJ IV PRN (17:45)
[2023-12-18] MEDS ORDERED: DEXTROSE 50% WATER 50ML SYRINGE IV PRN (17:45)
[2023-12-18] MEDS ORDERED: CLONIDINE 0.1MG TABLET PO PRN (17:45)
[2023-12-18] MEDS: ENOXAPARIN 80MG/0.8ML SYR SUBCUT NR (18:15)
[2023-12-18] MEDS: INSULIN LISPRO 100 UNITS/ML SUBCUT SCH (18:23)
[2023-12-18 19:27] LABS: INR 1.1
[2023-12-18 21:13] LABS: TROPONIN I HIGH SENSITIVITY 22 ng/L (3.0-53)
[2023-12-18] MEDS: BLOOD SUGAR DIAGNOSTIC STRIP TEST SCH (21:38)
[2023-12-18 22:27] LABS: *AMPHETAMINES SCREEN URINE PRESUMPTIVE POSITIVE (NEGATIVE); *BARBITURATES SCREEN URINE NEGATIVE (NEGATIVE); *BENZODIAZEPINES SCREEN URINE NEGATIVE (NEGATIVE); *COCAINE SCREEN URINE NEGATIVE (NEGATIVE); METHADONE URINE SCREEN NEGATIVE (NEGATIVE); OPIATES URINE SCREEN PRESUMPTIVE POSITIVE (NEGATIVE)
[2023-12-18 22:28] LABS: CANNABINOID URINE SCREEN NEGATIVE (NEGATIVE); ECSTASY MDMA SCREEN URINE NEGATIVE (NEGATIVE); PHENCYCLIDINE URINE SCREEN NEGATIVE (NEGATIVE)
[2023-12-19] VITALS (8 sets, daily range): BP systolic 115–144; BP diastolic 66–114; PULSE 70–107; RESP 18–21; TEMP 35.94732–36.9474; O2SAT 95–98
[2023-12-19] MEDS: ENOXAPARIN 80MG/0.8ML SYR SUBCUT SCH (08:27)
[2023-12-19] MEDS: ENOXAPARIN 100MG/ML SYR SUBCUT SCH (12:00)
[2023-12-19 12:01] LABS: CHLORIDE 100 mEq/L (98-107); POTASSIUM 3.9 mEq/L (3.5-5.1); SODIUM 140 mEq/L (136-145)
[2023-12-19 12:02] LABS: CARBON DIOXIDE 35 mEq/L (21-32)
[2023-12-19 12:03] LABS: CALCIUM 9.4 mg/dL (8.7-10.4)
[2023-12-19 12:07] LABS: CREATININE 0.9 mg/dL (0.6-1.3); GLUCOSE 114 mg/dL (70-105)
[2023-12-19 12:08] LABS: UREA NITROGEN BLOOD 13 mg/dL (9-23)
[2023-12-19 12:11] LABS: BASOPHILS % 0.5 % (0.0-2.0); EOSINOPHILS % 1.8 % (0.0-5.0); HEMATOCRIT. 45.3 % (42.0-52.0); HEMOGLOBIN. 15.2 g/dL (14.0-18.0); LYMPHOCYTES % 21.7 % (20.0-50.0); MEAN CORPUSCULAR HEMOGLOBIN 30.9 pg (28.0-32.0); MEAN CORPUSCULAR HGB CONC 33.5 g/dL (31.0-37.0); MEAN CORPUSCULAR VOLUME 92.1 fL (80.0-94.0); MEAN PLATELET VOLUME 9.5 fl (7.4-10.4); MONOCYTES % 6.8 % (2.0-8.0); NEUTROPHILS % 69.2 % (40.0-76.0); PLATELET 262 x1000/uL (130-400); RED BLOOD CELL COUNT 4.92 mill/uL (4.7-6.1); RED CELL DISTRIBUTION WIDTH 14.8 % (11.6-14.6); WHITE BLOOD COUNT 6.6 x1000/uL (4.5-11.0)
[2023-12-19] MEDS: FUROSEMIDE 20MG/2ML VIAL IVP SCH (13:20)
[2023-12-19] MEDS: METOPROLOL TARTRATE 25MG TABLET PO SCH (13:21)
[2023-12-19] MEDS: ACETAMINOPHEN 325MG TABLET PO PRN (21:27)
[2023-12-20] VITALS: BP 115/66; PULSE 89; RESP 20; TEMP 36.61404; O2SAT 94
[2023-12-20 04:00] VITALS: BP 129/86; PULSE 85; RESP 21; TEMP 36.44736; O2SAT 97
[2023-12-20 08:00] VITALS: BP 125/91; PULSE 60; RESP 19; TEMP 36.72516; O2SAT 91
[2023-12-20 11:50] VITALS: BP 124/90; PULSE 61; RESP 20; TEMP 36.61404; O2SAT 93
[2023-12-20 16:00] VITALS: BP 138/90; PULSE 91; RESP 19; TEMP 36.61404; O2SAT 97
[2023-12-20 20:00] VITALS: BP 118/84; PULSE 103; RESP 21; TEMP 36.61404; O2SAT 94
[2023-12-21] VITALS: BP 123/96; PULSE 97; RESP 20; TEMP 36.16956; O2SAT 95
[2023-12-21 04:00] VITALS: BP 126/83; PULSE 97; RESP 19; TEMP 36.28068; O2SAT 95
[2023-12-21 07:14] LABS: CARBON DIOXIDE 29 mEq/L (21-32); CHLORIDE 101 mEq/L (98-107); POTASSIUM 3.8 mEq/L (3.5-5.1); SODIUM 138 mEq/L (136-145)
[2023-12-21 07:16] LABS: CALCIUM 9.1 mg/dL (8.7-10.4)
[2023-12-21 07:19] LABS: CREATININE 0.8 mg/dL (0.6-1.3)
[2023-12-21 07:20] LABS: GLUCOSE 169 mg/dL (70-105)
[2023-12-21 07:21] LABS: UREA NITROGEN BLOOD 14 mg/dL (9-23)
[2023-12-21 07:23] LABS: PHOSPHORUS 3.4 mg/dL (2.5-4.9)
[2023-12-21 07:44] LABS: BASOPHILS % 0.8 % (0.0-2.0); EOSINOPHILS % 2.3 % (0.0-5.0); HEMATOCRIT. 46.1 % (42.0-52.0); HEMOGLOBIN. 15.2 g/dL (14.0-18.0); LYMPHOCYTES % 25.2 % (20.0-50.0); MEAN CORPUSCULAR HEMOGLOBIN 30.2 pg (28.0-32.0); MEAN CORPUSCULAR HGB CONC 32.9 g/dL (31.0-37.0); MEAN CORPUSCULAR VOLUME 91.7 fL (80.0-94.0); MEAN PLATELET VOLUME 9.6 fl (7.4-10.4); MONOCYTES % 6.8 % (2.0-8.0); NEUTROPHILS % 64.9 % (40.0-76.0); PLATELET 272 x1000/uL (130-400); RED BLOOD CELL COUNT 5.03 mill/uL (4.7-6.1); RED CELL DISTRIBUTION WIDTH 14.9 % (11.6-14.6)
[2023-12-21 08:14] VITALS: BP 134/92; PULSE 94; RESP 20; TEMP 36.50292; O2SAT 95
[2023-12-21 12:04] VITALS: BP 132/83; PULSE 80; RESP 18; TEMP 36.55848; O2SAT 94
[2023-12-21] MEDS ORDERED: FURO-152 MT (13:27)
[2023-12-21] MEDS ORDERED: POTA-204 PO (13:27)
[2023-12-21] MEDS ORDERED: METO25TA6 PO (13:27)
[2023-12-21 13:56] VITALS: BP 132/83; PULSE 80; TEMP 97.8; O2SAT 94
== END 2023-12-21 16:30 | disposition home or self-care (01) | DRG 720 ==
LOC: ER 13:13 → EDBEDREQ 13:47 → EDBEDREQTM 17:07 → EDBEDREQ 17:07 → 5WST 12-19 02:11 → 7WST 12-19 18:23
PROVIDERS: ADMIT Family Medicine Adult Medicine; ATTEND Family Medicine Adult Medicine
DX: A41.9 Sepsis, unspecified organism (principal); J96.00 Acute respiratory failure, unspecified whether with hypoxia or hypercapnia; I21.4 Non-ST elevation (NSTEMI) myocardial infarction; I50.33 Acute on chronic diastolic (congestive) heart failure; N17.9 Acute kidney failure, unspecified; I47.19 Other supraventricular tachycardia; L03.115 Cellulitis of right lower limb; E11.40 Type 2 diabetes mellitus with diabetic neuropathy, unspecified; I83.029 Varicose veins of left lower extremity with ulcer of unspecified site; I11.0 Hypertensive heart disease with heart failure; E87.6 Hypokalemia; I25.10 Atherosclerotic heart disease of native coronary artery without angina pectoris; L03.116 Cellulitis of left lower limb; J44.9 Chronic obstructive pulmonary disease, unspecified; I48.91 Unspecified atrial fibrillation; E66.9 Obesity, unspecified; F19.90 Other psychoactive substance use, unspecified, uncomplicated; F15.10 Other stimulant abuse, uncomplicated; F17.210 Nicotine dependence, cigarettes, uncomplicated; Z79.01 Long term (current) use of anticoagulants; Z71.51 Drug abuse counseling and surveillance of drug abuser; Z68.32 Body mass index [BMI] 32.0-32.9, adult; Z82.49 Family history of ischemic heart disease and other diseases of the circulatory system; Z83.3 Family history of diabetes mellitus
CPT/HCPCS: 36415; 71045; 80048; 80305; 82962; 83036; 83605; 83735; 83880; 84100; 84145; 84484; 85025; 85379; 93005; 93306; 99291; J0696; J1650; J1815; J1940; J2270; J3370; J3490; J7050

== ENCOUNTER 2024-01-07 16:33 | Emergency (ER) | payer MEDICAID ==
[~2024-01-07] VITALS: Ht 175.3 cm; Wt 105.0 kg
[~2024-01-07 16:33] MED LIST changes: -CEPH500C2 MT; +FURO-152 MT; +METF-1149 PO; -METF-873 PO
[2024-01-07 16:41] VITALS: BP 155/98; PULSE 111; RESP 16; TEMP 98.5; O2SAT 94
[2024-01-07 18:24] LABS: BASOPHILS % 0.4 % (0.0-2.0); EOSINOPHILS % 1.5 % (0.0-5.0); HEMATOCRIT. 47.2 % (42.0-52.0); HEMOGLOBIN. 15.8 g/dL (14.0-18.0); LYMPHOCYTES % 19.7 % (20.0-50.0); MEAN CORPUSCULAR HEMOGLOBIN 30.4 pg (28.0-32.0); MEAN CORPUSCULAR HGB CONC 33.4 g/dL (31.0-37.0); MEAN CORPUSCULAR VOLUME 90.9 fL (80.0-94.0); MEAN PLATELET VOLUME 9.4 fl (7.4-10.4); MONOCYTES % 7.4 % (2.0-8.0); PLATELET 260 x1000/uL (130-400); RED BLOOD CELL COUNT 5.19 mill/uL (4.7-6.1); RED CELL DISTRIBUTION WIDTH 14.4 % (11.6-14.6); WHITE BLOOD COUNT 8.4 x1000/uL (4.5-11.0)
[2024-01-07 18:32] LABS: CARBON DIOXIDE 31 mEq/L (21-32); CHLORIDE 104 mEq/L (98-107); POTASSIUM 3.8 mEq/L (3.5-5.1); SODIUM 139 mEq/L (136-145)
[2024-01-07] MEDS: IBUPROFEN 600MG TABLET PO ONE (18:32)
[2024-01-07 18:33] LABS: CALCIUM 9.6 mg/dL (8.7-10.4)
[2024-01-07 18:38] LABS: CREATININE 0.9 mg/dL (0.6-1.3); GLUCOSE 129 mg/dL (70-105); UREA NITROGEN BLOOD 14 mg/dL (9-23)
[2024-01-07 18:40] LABS: TROPONIN I HIGH SENSITIVITY 19 ng/L (3.0-53)
== END 2024-01-07 19:52 | disposition home or self-care (01) ==
LOC: ER 16:33
DX: M79.89 Other specified soft tissue disorders (principal); I50.9 Heart failure, unspecified; F15.90 Other stimulant use, unspecified, uncomplicated; E11.9 Type 2 diabetes mellitus without complications; I11.0 Hypertensive heart disease with heart failure; Z79.899 Other long term (current) drug therapy
CPT/HCPCS: 36415; 71045; 80048; 83880; 84484; 85025; 93970; 99284

== ENCOUNTER 2024-01-27 20:21 | Emergency (ER) | payer MEDICAID ==
[~2024-01-27] VITALS: Ht 167.6 cm; Wt 97.0 kg
[2024-01-27 20:37] VITALS: O2SAT 95
[2024-01-27 20:42] VITALS: BP 139/97; PULSE 109; RESP 18; TEMP 36.83628; O2SAT 95
== END 2024-01-27 23:17 | disposition left against medical advice (07) ==
LOC: ER 20:21
DX: R60.0 Localized edema (principal); M79.604 Pain in right leg; M79.605 Pain in left leg; I11.0 Hypertensive heart disease with heart failure; I50.9 Heart failure, unspecified; E11.9 Type 2 diabetes mellitus without complications; Z79.899 Other long term (current) drug therapy; Z79.84 Long term (current) use of oral hypoglycemic drugs
CPT/HCPCS: 99281